=== PATIENT | male | born 1945 | race Caucasian/White ===

== ENCOUNTER 2024-03-22 06:28 | Inpatient (IN) | payer MEDICARE, OTHER, SELFPAY ==
--- NOTE | 2024-02-23 09:15 | CM ---
Patient is scheduled for an elective L THR on 03/22/24. Spoke with patient and his prior to surgery via telephone. Patient had a R THR at in 2016. Reintroduced role of Orthopedic Navigator. Patient reports that he lives with his in a one
story home. There are two (1-1) steps to enter. He currently functions independently and uses a cane. He also has a rolling walker, commode and grabber. He has never had VN services. PCP is Jennifer Rios.
Discussed orthopedic program and post surgical plans. Reviewed anticipated length of stay and that goal is for him to return home at discharge. Also reviewed outpatient PT. Patient is in agreement with tentative plan and will go directly to
outpatient PT at [facility]. He will have support from his when he goes home.
Patient will complete online education.
Plan: Orthopedic Navigator will remain available to assist with the care of patient and will reassess discharge needs after surgery.
[2024-03-05 13:08] VITALS: BMI 39.1
[2024-03-05 13:40] LABS: Hematocrit 47.8 % (39.0-52.0); Hemoglobin 16.7 g/dL (13.0-18.0); Mean Corp Hgb Conc. 34.9 g/dL (33.0-37.0); Mean Corpuscular Hgb 30.6 pg (27.0-31.0); Mean Corpuscular Volume 87.5 fL (80.0-94.0); Mean Platelet Volume 9.5 fL (7.4-10.4); Platelet Count 303 10^3/uL (130-400); Red Blood Cell Count 5.46 10^6/uL (4.70-6.10); Red Cell Dist. Width 13.9 % (11.5-14.5); White Blood Cell Count 8.9 10^3/uL (4.8-10.8)
[2024-03-05 13:54] LABS: ALT (SGPT) 18 U/L (0-50); AST (SGOT) 27 U/L (17-59); Albumin 4.4 g/dl (3.5-5.0); Alkaline Phosphatase 76 U/L (38-126); Blood Urea Nitrogen 23 mg/dl (9-20); Calcium 9.9 mg/dl (8.4-10.2); Carbon Dioxide 27 mmol/L (22-30); Chloride 101 mmol/L (98-107); Estimated Creatinine Clearance 79 ml/min; Glucose 85 mg/dl (70-99); Potassium 4.3 mmol/L (3.5-5.1); Sodium 137 mmol/L (135-145); Total Bilirubin 1.2 mg/dl (0.2-1.3); Total Protein 7.6 g/dl (6.3-8.2); eGFR > 60.00
[2024-03-05 15:16] VITALS: BMI 39.1
[2024-03-06 10:34] LABS: Glycohemoglobin (HgbA1c) 5.7 % (4.0-5.6)
--- NOTE | 2024-03-10 07:46 | SLEEP.APNEA ---
Sleep Apnea Order
-
Patient screened as High Risk for Sleep Apnea on Stop Bang Questionnaire. Patient referred to [facility] for Pre-Study.

Name: ENIO NICHOLSON
: 1945
Home Phone: Use RegAc[employer].PrimaryPhone instead
Cell Phone: [f_Reg Other Phone]

Address: [address] [place] [address]
City: [place]
State: [place]
Zip: [f[facility] Zip]
Family Physician: MARIS Ford
Height 5 ft 7 in
Actual Weight 113 kg
Body Mass Index (BMI) 39.1
Ordering Provider: Ronan Mack PA-C
[2024-03-22] VITALS (11 sets, daily range): BP systolic 103–149; BP diastolic 64–90; BMI 39.1
[2024-03-22] MEDS: MOBIC 15 MG PO (07:27)
[2024-03-22] MEDS: TYLENOL 650 MG PO ×5 (07:27→23:51)
[2024-03-22] MEDS: NORMOSOL-R 1000 IV ×2 (07:27→10:36)
--- NOTE | 2024-03-22 11:09 | W.PN.UPDATE ---
Update Note
Progress Note Update
L hip OA s/p L ANIYAH w/ Dr Agrawal 03/22/24
DVT prophylaxis - ASA, b/l venous foot pumps
HTN - + parameters - monitor BP
Asthma, mild and intermittent, and restrictive lung disease - monitor O2
- IS
- Resume inhalers
TIA at 42 y/o - resume ASA but at 325 mg daily dosing x4 weeks for blood clot prevention
BPH - monitor voids
- Add daily Flomax during admission
History of steroid-induced psychosis - avoid Decadron post-op
HLD
Vitamin D deficiency
Obesity, BMI 39.0
--- NOTE | 2024-03-22 11:57 | PTCARENOTE ---
Received patient from PACU around 1055 via bed in stable condition. Patient denies pain. + movement +sensation. Pins and needs to b/l feet. Left hip dressing C/D/I. Ice in place. Teds and foot pumps in place. Call eng in reach.
[2024-03-22] MEDS: FLOMAX 0.400000000000000022 MG PO (12:48)
[2024-03-22] MEDS: ANCEF 5 IV ×2 (15:53→23:50)
[2024-03-22] MEDS: ASPIRIN 325 MG PO (17:00)
[2024-03-22] MEDS: SYMBICORT 160/4.5 MCG INHALER 2 PUFF INH (19:48)
[2024-03-22] MEDS: BACTROBAN 2% OINTMENT 1 APPLIC NASAL (20:28)
[2024-03-22] MEDS: SENOKOT 17.1999999999999993 MG PO (20:28)
[2024-03-22] MEDS: COLACE 100 MG PO (20:28)
[2024-03-22] MEDS: TORADOL 10 MG IV (20:28)
[2024-03-22] MEDS: FLUSH (NSS) 2 FLUSH IV ×2 (20:30→23:51)
[2024-03-23 03:32] VITALS: BP 132/80
[2024-03-23] MEDS: TYLENOL PO (04:30)
[2024-03-23] MEDS: SYMBICORT 160/4.5 MCG INHALER 2 PUFF INH (07:33)
[2024-03-23] MEDS: SPIRIVA RESPIMAT 2.5 MCG 2 PUFF INH (07:33)
[2024-03-23 08:00] VITALS: BP 115/74
[2024-03-23 08:09] VITALS: BP 115/74
--- NOTE | 2024-03-23 08:32 | CM ---
Addendum entered by Radha Duffy 03/23/24 10:49:
Patient did well in therapy. He has no concerns about going home.
Addendum entered by Radha Duffy 03/23/24 08:33:
Discharge plans were reviewed with patient's and daughter on 03/22.
Original Note:
Reviewed chart and held rounds with PT, OT and nursing. Patient admitted as planned for elective L THR. Met with patient at bedside. Confirmed information previously obtained for assessment. Also discussed discharge plans. The plan is for patient to
return home at discharge. He will have support from his when he goes home. Patient will go directly to outpatient PT and will go to [facility]. He has an appointment scheduled for Friday, 03/24.
Patient has a rolling walker, cane, commode and grabber.
He will use [facility] pharmacy for discharge prescriptions.
[2024-03-23] MEDS: TYLENOL 650 MG PO (08:49)
[2024-03-23] MEDS: SENOKOT 17.1999999999999993 MG PO (08:50)
[2024-03-23] MEDS: ASPIRIN 325 MG PO (08:50)
[2024-03-23] MEDS: FLOMAX 0.400000000000000022 MG PO (08:50)
[2024-03-23] MEDS: COLACE 100 MG PO (08:51)
[2024-03-23] MEDS: MOBIC 15 MG PO (08:52)
[2024-03-23] MEDS: BACTROBAN 2% OINTMENT 1 APPLIC NASAL (08:52)
[2024-03-23 09:25] VITALS: BP 132/69; PULSE 94
[2024-03-23 10:20] VITALS: BP 92/63
--- NOTE | 2024-03-23 10:42 | W.PN.ORTHO ---
Today's Communication / Plan
-
d/c
Assessment
.
Distal Motor Intact: Yes
Dressing:
Clean, dry and intact.
Plan
.
Surgery / Date: Koby Agrawal 03/23/24
DVT Prophylaxis: Aspirin
Activity:
Out of bed.
PT/OT
Discharge Plan: Home w/ Outpatient PT
Subjective
.
.:
Patient resting comfortably.
Vital Signs and Labs
.
Vital Signs and Labs:
Lab Results
03/05/24 12:59
03/05/24 12:59
Temp Pulse Resp BP Pulse Ox
97.8 F 89 18 133/60 95
03/23/24 08:00 03/23/24 08:00 03/23/24 08:00 03/23/24 08:50 03/23/24 08:00
Non-invasive Hgb result: 17.6
Physical Exam
-
HEENT: No pallor, cyanosis, or jaundice. Throat clear.
NECK: Supple. No JVD.
RESPIRATORY: Lungs clear to auscultation.
CVS: S1, S2 normal. RRR.� No murmur, rub or gallop.
ABDOMEN: Soft, non-tender. No distension. BS+/normal.
EXTREMITIES: strength equal, no calf pain with palpation
CONFLICT RESOLUTION PROFESSIONAL: AOx3. No focal deficits. burglar alarm installer grossly intact
--- NOTE | 2024-03-23 10:50 | W.DS.TRANS ---
DC Summary - Radioisotope Technologist
-
Discharge Instructions:
Sleep Apnea Risk High
Discharge Diagnosis/Procedures Koby Agrawal 03/23/24
Diet As tolerated
Activity With Walker
Driving Restrictions No driving
Bathing Restrictions OK to Shower
Other Services PT
Instructions:
Stand-Alone Forms: Total Hip/Knee Replacement D/C
Changes to Home Medications: Yes
Discharge Medications:
DC Medications w/original date entered in Cl[facility]
Cranbarrier 1 tab PO BID 02/26/24
Phytomega 2 tab PO BID 02/26/24
Prostavan 1 tab PO DAILY 02/26/24
Replenex 1 tab PO HS 02/26/24
Replenex 2 tab PO DAILY 02/26/24
Vitality Multivit & Mineral 1 tab PO BID 02/26/24
albuterol 90 mcg/actuation aerosol inhaler 90 mcg inhalation PRN PRN SOB 02/26/24
budesonide 160 mcg-glycopyr 9 mcg-formot 4.8 mcg/actuation HFA inhaler (Breztri Aerosphere) 2 inh inhalation BID 02/26/24
hydrochlorothiazide 25 mg tablet 25 mg PO DAILY 02/26/24
losartan 100 mg tablet 100 mg PO DAILY 02/26/24
mupirocin 2 % topical ointment 1 applic topical BID infection prevention #1 tube 03/05/24
tamsulosin 0.4 mg capsule 0.4 mg PO HS #7 caps 03/05/24
Saccharomyces boulardii 250 mg capsule (Florastor) 250 mg PO BID #1 cap 03/23/24
acetaminophen 325 mg capsule (Tylenol) 650 mg (2 x 325 mg) PO QID #2 caps 03/23/24
acetaminophen 325 mg tablet 650 mg (2 x 325 mg) PO QID #0 tabs 03/23/24
aspirin 325 mg tablet 325 mg PO DAILY blood clot prevention #1 tab 03/23/24
cefadroxil 500 mg capsule 500 mg PO BID infection prevention #14 caps 03/23/24
docusate sodium 100 mg capsule (Colace) 100 mg PO BID stool softner #1 cap 03/23/24
famotidine 20 mg tablet 20 mg PO HS GI prophylaxis #30 tabs 03/23/24
gabapentin 300 mg capsule 300 mg PO HS sleep/pain #10 caps 03/23/24
magnesium hydroxide 400 mg/5 mL oral suspension (Milk of Magnesia) 30 ml PO HS PRN Constipation #1 mL 03/23/24
meloxicam 15 mg tablet 15 mg PO DAILY anti-inflammatory #14 tabs 03/23/24
oxycodone 5 mg tablet 5 mg PO Q6H PRN 1 tab moderate pain, 2 tabs severe pain #30 tabs 03/23/24
sennosides 8.6 mg tablet (Senokot) 17.2 mg (2 x 8.6 mg) PO BID laxative #2 tabs 03/23/24
Home Medication Changes
mupirocin 2 % topical ointment 1 applic topical BID infection prevention #1 tube 03/05/24�
tamsulosin 0.4 mg capsule 0.4 mg PO HS #7 caps 03/05/24�
Saccharomyces boulardii 250 mg capsule (Florastor) 250 mg PO BID #1 cap 03/23/24�
acetaminophen 325 mg capsule (Tylenol) 650 mg (2 x 325 mg) PO QID #2 caps 03/23/24�
aspirin 325 mg tablet 325 mg PO DAILY blood clot prevention #1 tab 03/23/24�
cefadroxil 500 mg capsule 500 mg PO BID infection prevention #14 caps 03/23/24�
famotidine 20 mg tablet 20 mg PO HS GI prophylaxis #30 tabs 03/23/24�
gabapentin 300 mg capsule 300 mg PO HS sleep/pain #10 caps 03/23/24�
meloxicam 15 mg tablet 15 mg PO DAILY anti-inflammatory #14 tabs 03/23/24�
oxycodone 5 mg tablet 5 mg PO Q6H PRN 1 tab moderate pain, 2 tabs severe pain #30 tabs 03/23/24�
Pending Results: No
[2024-03-23 11:26] VITALS: BP 117/62
== END 2024-03-23 11:58 | disposition home or self-care (01) | DRG 470 ==
LOC: 2 SOUTH 06:28
PROVIDERS: ADMITTING PHYSICIAN Specialist; FAMILY PHYSICIAN Nurse Practitioner Family
PROC: 0SRB04A Replacement of Left Hip Joint with Ceramic on Polyethylene Synthetic Substitute, Uncemented, Open Approach (ICD-10-PCS; 2024-03-22)
DX: M16.12 Unilateral primary osteoarthritis, left hip (principal); E66.9 Obesity, unspecified; I10 Essential (primary) hypertension; E78.5 Hyperlipidemia, unspecified; N40.0 Benign prostatic hyperplasia without lower urinary tract symptoms; E55.9 Vitamin D deficiency, unspecified; F09 Unspecified mental disorder due to known physiological condition; T38.0X5A Adverse effect of glucocorticoids and synthetic analogues, initial encounter; J98.4 Other disorders of lung; Z68.39 Body mass index [BMI] 39.0-39.9, adult; Z79.82 Long term (current) use of aspirin; Z86.73 Personal history of transient ischemic attack (TIA), and cerebral infarction without residual deficits
CPT/HCPCS: 36415; 73502; 80053; 83036; 85027; 87070; 93005; 94640; 97110; 97116; 97162; 97167; 97530; 97535; C1713; C1776

== ENCOUNTER 2025-03-13 12:22 | Emergency (ER) | payer MEDICARE, OTHER, SELFPAY ==
[2025-03-13 12:32] VITALS: BP 195/89
[2025-03-13 15:22] VITALS: BP 189/84
--- NOTE | 2025-03-13 15:40 | ED.GENMED ---
History of Present Illness
General
Chief Complaint: Swelling
Source: patient
Exam Limitations: none
Time Seen by Provider: 03/13/25 13:15
History of Present Illness
History of Present Illness:
80-year-old male presents complaining of atraumatic pain and swelling to the left foot. He noticed something last night and got worse this morning. He denies chest pain or shortness of breath. He was initially seen at an urgent care was sent here
for evaluation of DVT. He is not anticoagulated. No other complaints at this time
Past History
Past History
ED Past Medical History: HTN
Social History
Tobacco: Non-smoker
Alcohol: Occasional
Drug: None
Personal:
Living: with family
Phy Exam
Physical Exam
Physical Exam:
General: Well-appearing male no acute respiratory distress
HEENT: Normocephalic atraumatic
Musculoskeletal exam: Left foot swollen ecchymotic and tender over the dorsum of the foot. No deformity the ankle is nontender.
Skin is intact without erythema
Vascular: Left foot has palpable DP pulse with brisk refill to the toes
Neurologic: Good sensation left foot
Scores
Heart Failure Risk
Heart Failure Risk Score: Not Applicable
Course
Orders/Labs/Results
Orders:
Orders
03/13/25 12:35
US Periph Venous LOWER Ext LT Urgent
Comment:
Reason For Exam: swelling/pain
03/13/25 14:23
CR Foot - Left Min 3 Views Urgent
Comment:
Reason For Exam: swelling
Vital Signs
Initial and Last Documented VS:
Initial Vital Signs
Temp Pulse Resp BP Pulse Ox
98.7 F 65 17 195/89 96
03/13/25 12:32 03/13/25 12:32 03/13/25 12:32 03/13/25 12:32 03/13/25 12:32
Last Documented Vital Signs
Temp Pulse Resp BP Pulse Ox
98.7 F 61 18 189/84 95
03/13/25 12:32 03/13/25 15:22 03/13/25 15:22 03/13/25 15:22 03/13/25 15:22
MDM/Problems Addressed
Differential Diagnosis Includes:
Left foot pain. Consider contusion versus fracture versus DVT. No overwhelming findings of infection on the foot. Initially seen at an urgent care and sent here.
Venous ultrasound ordered through triage was negative for DVT. X-ray was personally visualized of the left foot which is negative for acute fracture. Exam most consistent with contusion. Recommended ice and elevation. Stable for discharge
*Critical Care Note
Total Time (30-74mins, 75-104mins- exclusive of procedures): Not Applicable
ED Attending Note
-
Portions of this chart may have been created with voice recognition software.� Occasional wrong word or��sound alike� substitutions may have occurred due to the inherent limitations of voice recognition software.
Discharge Plan
Departure
Patient Disposition: Home (Routine Discharge)
Date of Disposition: 03/13/25
Time of Disposition: 15:42
Patient with high blood pressure during this ER visit?: No
Discharge Problem:
Contusion
Instructions: Contusion
Prescriptions:
No Action
hydrochlorothiazide 25 mg Tablet
25 mg PO DAILY
albuterol 90 mcg/actuation Aerosol
90 mcg INHALATION PRN PRN (Reason: SOB)
losartan 100 mg Tablet
100 mg PO DAILY
Breztri Aerosphere 160-9-4.8 mcg/actuation Hfa Aerosol Inhaler
2 inh INHALATION BID
Cranbarrier
1 tab PO BID
Rx Instructions:
MelaleSoniqplay
Phytomega
2 tab PO BID
Rx Instructions:
MelaleSoniqplay
Prostavan
1 tab PO DAILY
Patient Comments:
Visitar
Replenex
2 tab PO DAILY
Patient Comments:
Visitar
Replenex
1 tab PO HS
Patient Comments:
CorrineSoniqplay
Vitality Multivit & Mineral
1 tab PO BID
Rx Instructions:
Visitar
mupirocin 2 % ointment
1 applic topical BID Qty: 1 0RF
tamsulosin 0.4 mg capsule
0.4 mg PO HS Qty: 7 0RF
Rx Instructions:
begin 3 nights b/f surgery
sennosides [Senokot] 8.6 mg tablet
17.2 mg PO BID Qty: 2 0RF
aspirin 325 mg tablet
325 mg PO DAILY Qty: 1 0RF
Rx Instructions:
Take with food
meloxicam 15 mg tablet
15 mg PO DAILY Qty: 14 0RF
Rx Instructions:
take with food
post-op
cefadroxil 500 mg capsule
500 mg PO BID Qty: 14 0RF
Rx Instructions:
*Take w/ food
*Take w/ probiotic
*POST-OP USE
famotidine 20 mg tablet
20 mg PO HS Qty: 30 0RF
Rx Instructions:
post-op
magnesium hydroxide [Milk of Magnesia] 400 mg/5 mL suspension
30 ml PO HS PRN (Reason: Constipation) Qty: 1 0RF
docusate sodium [Colace] 100 mg capsule
100 mg PO BID Qty: 1 0RF
gabapentin 300 mg capsule
300 mg PO HS Qty: 10 0RF
oxycodone 5 mg tablet
5 mg PO Q6H PRN (Reason: 1 tab moderate pain, 2 tabs severe pain) Qty: 30 0RF
Rx Instructions:
Ongoing therapy
Saccharomyces boulardii [Florastor] 250 mg capsule
250 mg PO BID Qty: 1 0RF
acetaminophen [Tylenol] 325 mg capsule
650 mg PO QID Qty: 2 0RF
Referrals:
Jennifer Rios CRNP [Family Provider] -
Activity Restrictions/Additional Instructions:
Elevate for swelling. Use ice for swelling. Take Tylenol for pain. Return if worse otherwise follow-up with your doctor
Interventions
Interventions:
*Risk Screen - Suicide Last Done: 03/13/25 12:34
*General Assessment Last Done: 03/13/25 12:34
*Neglect/Abuse Screening Last Done: 03/13/25 12:34
*ED COVID-19 Vaccine History Last Done: 03/13/25 12:34
ED- Cardiac Assessment Last Done: 03/13/25 15:22
ED- Pulmonary Assessment Last Done: 03/13/25 15:22
ED-Skin Assessment Last Done: 03/13/25 15:25
Discharge Date and Time
Print Language: UKRAINIAN
== END 2025-03-13 16:00 | disposition home or self-care (01) ==
LOC: EMR 12:22
PROVIDERS: EMERGENCY PHYSICIAN Student in an Organized Health Care Education/Training Program; FAMILY PHYSICIAN Nurse Practitioner Family
DX: S90.32XA Contusion of left foot, initial encounter (principal); I10 Essential (primary) hypertension
CPT/HCPCS: 99284; 73630; 93971

== ENCOUNTER 2025-05-18 06:32 | Inpatient (IN) | payer MEDICARE, OTHER, SELFPAY ==
[2025-05-18] VITALS (18 sets, daily range): BP systolic 102–167; BP diastolic 66–91; BMI 34.7
[2025-05-18] MEDS: PROTONIX IV 40 MG IV ×2 (02:53→09:06)
[2025-05-18] MEDS: NSS 1000 IV ×4 (02:53→21:54)
[2025-05-18 03:12] LABS: Hematocrit 41.9 % (39.0-52.0); Hemoglobin 14.1 g/dL (13.0-18.0); Mean Corp Hgb Conc. 33.7 g/dL (33.0-37.0); Mean Corpuscular Volume 92.5 fL (80.0-94.0); Nucleated Red Blood Cells % 0 % (-); Platelet Count 250 10^3/uL (130-400); Red Cell Dist. Width 14.5 % (11.5-14.5)
[2025-05-18 03:26] LABS: ALT (SGPT) 16 U/L (0-50); AST (SGOT) 19 U/L (17-59); Albumin 3.7 g/dl (3.5-5.0); Alkaline Phosphatase 50 U/L (38-126); Blood Urea Nitrogen 31 mg/dl (9-20); Calcium 8.9 mg/dl (8.4-10.2); Carbon Dioxide 24 mmol/L (22-30); Chloride 111 mmol/L (98-107); Estimated Creatinine Clearance 66 ml/min; Glucose 137 mg/dl (70-99); Lipase 71 U/L (23-300); Potassium 4.6 mmol/L (3.5-5.1); Sodium 140 mmol/L (135-145); Total Protein 6.3 g/dl (6.3-8.2); eGFR > 60.00
--- NOTE | 2025-05-18 05:26 | ED.GENMED ---
History of Present Illness
General
Chief Complaint: Rectal Bleeding
Source: patient
Exam Limitations: none
Time Seen by Provider: 05/18/25 01:41
Nursing documentation reviewed up to this point in time: agreed with
History of Present Illness
History of Present Illness:
Note:
CHIEF COMPLAINT(S)
Passing blood during bowel movement
HISTORY OF PRESENT ILLNESS
The patient is an 80-year-old male with a pmh of htn, hlp, asthma who presented with significant rectal bleeding. He reported that the bleeding occurred while he was using the toilet, describing it as 'quite a bit' and noted that this had never
happened to him before. He compared the sensation in his stomach during the episode to 'gyrations' but denied experiencing pain. The event occurred at approximately 11:30 PM following a class he attended at a [facility]. He realized the
severity of the bleeding when he noticed blood on the passenger seat of the car. He reported feeling lightheaded and weak, with the possibility of passing out when standing.
There was no history of gastrointestinal problems, and the patient had never undergone a colonoscopy. He denied fever or chills but mentioned a long-standing habit of consuming hot sauce with every meal. He did not experience abdominal pain upon
palpation during the examination. No ongoing pain was reported, and the bleeding was identified as likely originating from hemorrhoids or another colorectal source.
He reported taking a baby aspirin but denied using other blood thinners.
He had multiple episodes of bloody stools over a 45 min period.
He has no fevers or chills, nausea or vomiting, chest pain, shortness of breath, recent abx use, recent travel.
PHYSICAL EXAM
- pallor noted
General: Patient is well appearing and in no acute distress; non-toxic
Skin: Warm and dry, no rashes or lesions
Head: Normocephalic, atraumatic
Eyes: Sclera non-icteric. EOMs intact.
Cardiac: Regular rate and rhythm, no murmurs
Pulm: Normal respiratory effort, no wheezes, rales, or rhonchi
Abdomen: No abdominal tenderness to palpation
Genitourinary: Dried blood noted between buttock. Large amount of bloody stool heme positive noted within rectal vault.
Neuro: CN II-XII intact, no focal neurologic deficits.
Psychiatric: Appropriate mood and affect.
PROBLEM LIST
Acute:
- Rectal bleeding
- Lightheadedness and weakness
- Low blood pressure
PLAN
1. Initiate intravenous fluid therapy to address low blood pressure and dehydration.
2. Order complete blood count and chemistry panel to evaluate hemoglobin levels and potential anemia.
3. Consider CTA
4. Monitor vital signs and adjust treatment plan based on laboratory and imaging results.
DIFFERENTIAL DIAGNOSIS
The Differential Diagnosis includes, in no particular order and is not limited to:
1. Gastrointestinal bleed due to diverticulosis
2. Colorectal cancer
3. Hemorrhoids
4. Gastrointestinal bleed due to peptic ulcer
5. Gastrointestinal bleed due to angiodysplasia
6. Coagulopathy-related bleeding
7. Infectious colitis
8. Inflammatory bowel disease (Crohns disease, ulcerative colitis)
9. Colonic polyps
10. Ischemic colitis
CHART REVIEW
-reviewed discharge summary from 10/30/16
MDM/DISPOSITION
The patient is an 80-year-old male with a pmh of htn, hlp, asthma who presented with significant rectal bleeding. He reported that the bleeding occurred while he was using the toilet, describing it as 'quite a bit' and noted that this had never
happened to him before. He has no associated abdominal pain, fevers, chills. On exam he has a large amount of bloody stool within the rectal vault. He will require admission for observation and endoscopy/colonoscopy and GI consultation. ED
attending aware
Past History
Past History
ED Past Medical History: HTN
Social History
Tobacco: Non-smoker
Alcohol: Occasional
Drug: None
Personal:
Living: with family
Review of Systems
Review of Systems
All Other Systems: ROS reviewed and negative except as documented in HPI and ROS
Phy Exam
Physical Exam
Physical Exam:
General: Patient is well appearing and in no acute distress; non-toxic
Skin: Warm and dry, no rashes or lesions
Head: Normocephalic, atraumatic
Eyes: Sclera non-icteric. EOMs intact.
Cardiac: Regular rate and rhythm, no murmurs
Pulm: Normal respiratory effort, no wheezes, rales, or rhonchi
Abdomen: No abdominal tenderness to palpation
Genitourinary: Dried blood noted between buttock. Large amount of bloody stool heme positive noted within rectal vault.
Neuro: CN II-XII intact, no focal neurologic deficits.
Psychiatric: Appropriate mood and affect.
Course
Orders/Labs/Results
Orders:
Orders
05/18/25 02:26
Pantoprazole [Protonix IV] 40 mg IV NOW STA
05/18/25 02:28
IV Insert/Care/Rem.- Treatment PRN
05/18/25 02:29
Electrocardiogram (*1) Urgent
Reason for Study: Other
Other Reason for Exam: lightheadedness
0.9% Sodium Chloride 1000 ml [Nss] 1,000 ml IV BOLUS
05/18/25 02:49
Type And Crossmatch [Type+Screen] Urgent
Complete Blood Count/With Diff Urgent
Comprehensive Metabolic Panel Urgent
Lipase Urgent
05/18/25 03:20
ABO2 Routine
BBK Wristband Number:
Associate notified that ABO2 has been ordered: [id number]
Date: 05/18/25
Time: 03:15
Reproductive Surgeon ID: [id number]
05/18/25 05:36
Dextrose 50%-Water [Dextrose 50% Syringe] 25 grams .ROUTE .STK-MED ONE
05/18/25 Breakfast
NPO
Allow oral meds: Yes
Allow clear liquids: Sips of Clears
05/18/25 06:16
Admit/Transfer Patient As Directed
Co-Sign Provider:
Level of Care: Inpatient admission
Assign to:: IMU- Intermediate Care
Physician / Group: Ac
Diagnosis: Lower GI Bleed
Reason for Hospitalization: Lower GI Bleed
Expected length of stay greater than two midnights?: Yes
ELOS- Estimated Length of Stay in days: 3
I certify the patient meets the requirements for IP care: Yes
PRN Pain Medication Management As Directed
May give lesser potent ordered pain med per pt: Yes
preference::
Protocol:: Medication orders for pain may be administered in a
manner that supports deferring to patient preference
when the pt is:
- Requesting an ordered lesser potent pain medication.
Least to most potent pain medications are defined
as: acetaminophen < NSAID < tramadol < opioids
(morphine, oxycodone, hydromorphone).
- Requesting a lesser dose of the same medication IF
ORDERED.
- Requesting a less intrusive route of administration
if both routes are prescribed by the provider (PO <
IV).
05/18/25 06:17
Code Status As Directed
Resuscitation Status: Full Code
05/18/25 06:21
0.9% Sodium Chloride 1000 ml [Nss] 1,000 ml IV BOLUS
05/18/25 08:16
0.9% Sodium Chloride 1000 ml [Nss] 1,000 ml IV 125 mls/hr
Acetaminophen [Tylenol] 650 mg PO Q4HPRN PRN
Albuterol Nebs [Ventolin Nebules] 2.5 mg INH R Q4HPRN PRN
05/18/25 08:16
Consult Notification Routine
Specialty to Notify: Gastroenterology
Date consulting provider notified: 05/18/25
Time consulting provider notified: 09:20
Notified:: Provider
GASTROINTESTINAL CONSULT Routine
Consulting Provider: Linh Ly
Was physician already notified: No
Reason for consult: Lower GI Bleed
Activity As Directed
Activity Level: Bedrest
EKG with chest pain [ECG as needed] As Directed
ECG as needed for:: Chest Pain
I/O [Intake/ Output] As Directed
Frequency: Per unit guidelines
Pneumatic Compression Sleeves As Directed
Type: Knee high
Vital Signs As Directed
Frequency: Per unit guidelines
Oxygen Therapy [O2 Therapy] [RESP] Routine
Titrate/Wean O2 to maintain O2 sat greater than (%): 94
DX Deep Vein Thrombosis Video Routine
05/18/25 09:00
Pantoprazole [Protonix IV] 40 mg IV DAILY
05/18/25 10:00
Budesonide/Formoterol 160/4.5 [Symbicort 160/4.5 Mcg Inhaler] 2 puff INH R BID
05/18/25 11:37
HH [H&H] Q6H
05/18/25 14:16
HH [H&H] Q6H
05/18/25 20:16
HH [H&H] Q6H
05/19/25 02:16
HH [H&H] Q6H
05/19/25 06:00
Basic Metabolic Panel IN AM
Abnormal Lab Results
05/18/25
02:49
WBC 15.4 H 10^3/uL
(4.8-10.8)
RBC 4.53 L 10^6/uL
(4.70-6.10)
MCH 31.1 H pg
(27.0-31.0)
Abs Immat Gran (auto) 0.2 H 10^3/uL
(0-0.05)
Absolute Neuts (auto) 12.8 H 10^3/uL
(1.4-6.5)
Absolute Monos (auto) 1.0 H 10^3/uL
(0.1-0.6)
Immature Gran % 1.0 H %
(0-0.5)
Neutrophils % 83.2 H %
(42.2-75.2)
Lymphocytes % 8.8 L %
(20.5-51.1)
Chloride 111 H mmol/L
(98-107)
BUN 31 H mg/dl
(9-20)
Glucose 137 H mg/dl
(70-99)
05/18/25 02:49
05/18/25 02:49
Vital Signs
Initial and Last Documented VS:
Initial Vital Signs
Temp Pulse Resp BP Pulse Ox
98.8 F 70 20 128/77 95
05/18/25 01:02 05/18/25 01:02 05/18/25 01:02 05/18/25 01:02 05/18/25 01:02
Last Documented Vital Signs
Temp Pulse Resp BP Pulse Ox
98 F 72 16 130/78 95
05/18/25 07:10 05/18/25 11:07 05/18/25 11:07 05/18/25 07:02 05/18/25 11:07
*Pulse Oximetry
SaO2: 92
Oxygen Mode of Delivery: Room air
Patient hypoxic: no
*Critical Care Note
Total Time (30-74mins, 75-104mins- exclusive of procedures): Not Applicable
ED Attending Note
-
Portions of this chart may have been created with voice recognition software.� Occasional wrong word or��sound alike� substitutions may have occurred due to the inherent limitations of voice recognition software.
Discharge Plan
Departure
Patient Disposition: Admit
Date of Disposition: 05/18/25
Time of Disposition: 05:33
Admit to: Med/Surg
Presentation/result/management discussed w/ accepting MD/DO: Hospitalist
Condition: Fair
Discharge Problem:
Lower gastrointestinal bleeding
Interventions
Interventions:
*Risk Screen - Suicide Last Done: 05/18/25 08:17
*General Assessment Last Done: 05/18/25 01:02
*Neglect/Abuse Screening Last Done: 05/18/25 01:02
*ED- Fall Risk Assessment Last Done: 05/18/25 01:02
*ED COVID-19 Vaccine History Last Done: 05/18/25 08:17
*Nursing Disposition Last Done: 05/18/25 08:24
FC-Kvyxua-Ikrkveehxa Assessment Last Done: 05/18/25 01:26
ED- Cardiac Assessment Last Done: 05/18/25 01:26
ED- Pulmonary Assessment Last Done: 05/18/25 01:26
Discharge Date and Time
Discharge Date/Time: 05/18/25 08:24
--- NOTE | 2025-05-18 06:19 | HPS.HSE ---
Family Physician
-
Family Physician: NOT KNOW UNKNOWN - PT DOES
Chief Complaint
-
Rectal Bleeding
History of Present Illness
Patient is an 80y M with PMH significant for hypertension and asthma who presents to ED complaining of rectal bleeding. Patient states that he was feeling well until this evening around 11:30 PM when his noted blood on his car seat while he
was exiting the vehicle at home. He went inside to the bathroom and proceed to have a large amount of 'bloody diarrhea'. He had two large episodes of this. has a picture of the results which appear to be most consistent with bright red blood
and dark clots - no significant amount of stool noted. Patient was feeling lightheaded and weak at home.
They presented to the ED for further evaluation.
Patient has not had further bleeding since arrival to the ED. He is feeling somewhat improved after IVFs in the ED.
He denies any prior history of GI bleeding. He has never had a colonoscopy before.
He takes ASA 81mg twice daily for prior h/o TIA in his 40s. No blood thinners.
Medical History
Past Medical History
Past Medical History: Reports Other
Additional Past Medical History:
Hypertension
TIA (42yo)
Obesity
Osteoarthritis
BPH
Asthma
Past Surgical History: Reports Other
Additional Past Surgical History:
Left TKA
Bilateral ANIYAH
Bilateral Inguinal Hernia Repairs
Social History
Tobacco: Non-smoker
Alcohol: Occasional
Drug: None
Personal:
Living: With Family
Family History
Family History: Not pertinent
Allergies / Home Medications
Allergies reflects when Allergies were last updated in [facility].
Home Medications with original date entered in [facility]
Allergy/Medication List:
Allergies
Allergy/AdvReac Type Severity Reaction Status Date / Time
iodine (Iodine) Allergy Hives Verified 05/18/25 01:02
sulfamethoxazole (From Allergy Itching Verified 05/18/25 01:02
Bactrim)
trimethoprim (From Bactrim) Allergy Itching Verified 05/18/25 01:02
Home Medications
budesonide 160 mcg-glycopyr 9 mcg-formot 4.8 mcg/actuation HFA inhaler (Breztri Aerosphere) 2 inh inhalation BID 02/26/24
hydrochlorothiazide 25 mg tablet 25 mg PO DAILY 02/26/24
losartan 100 mg tablet 100 mg PO DAILY 02/26/24
aspirin 81 mg chewable tablet 81 mg PO BID 05/18/25
Review of Systems
-
History Source: Patient
A 12 point ROS was completed and negative except as noted: Yes
Constitutional: Reports Fatigue; Denies Fever or Chills
Respiratory: Denies Cough or Trouble Breathing
Cardiac: Denies Chest Pain or Palpitations
Abdomen/GI: Reports Diarrhea and Bloody Stools; Denies Abdominal Pain, Nausea, Vomiting or Anorexia
: Denies Dysuria, Frequency or Flank Pain
Musculoskeletal: Denies Joint Pain or Edema
Neurological: Reports Dizzy and Weakness; Denies Headache
Physical Exam
Vital Signs
Vital Signs
Temp Pulse Resp BP Pulse Ox
98.8 F 70 14 102/71 92
05/18/25 01:02 05/18/25 01:23 05/18/25 01:23 05/18/25 01:23 05/18/25 05:26
Physical Exam
General: Other (80y M in no acute distress. Mild pallor.)
HEENT: Moist mucous membranes and PERRLA
Respiratory: Clear; No Wheezes, Rales or Rhonchi
Cardiac: S1/S2 and Regular Rhythm; No Murmur
GI: Non Tender, Non Distended and Other (Obese, not tender. Pos BS.)
Musculoskeletal: No Clubbing, No Cyanosis and No Edema
Neuro: AO x 3
Laboratory Results
-
05/18/25 02:49
05/18/25 02:49
Laboratory Results
Total Bilirubin 1.2 mg/dl (0.2-1.3) 05/18/25 02:49
AST 19 U/L (17-59) 05/18/25 02:49
ALT 16 U/L (0-50) 05/18/25 02:49
Alkaline Phosphatase 50 U/L (38-126) 05/18/25 02:49
Lipase 71 U/L (23-300) 05/18/25 02:49
Impression/Plan
-
A/P: Patient is an 80y M with PMH significant for hypertension who presents to ED complaining of bright red blood per rectum this evening.
Lower GI Bleeding
- Admit to IMU for further evaluation and treatment.
- History and photo evidence suggest significant volume of blood loss at home.
- IVF support with additional bolus now then maintenance fluids.
- Follow H&H and transfuse if significant decline in Hgb or worsening symptoms.
- GI evaluation for additional recommendations / possible endoscopic exam.
- Hold ASA for now.
Benign Hypertension
- Relatively hypotensive due to blood loss / volume loss.
- Hold losartan, HCTZ, etc for now.
Asthma without Acute Exacerbation
- Stable. Continue inhaled medications.
- Albuterol PRN.
DVT Prophylaxis: SCDs
Code Status: Full
--- NOTE | 2025-05-18 07:55 | PTCARENOTE ---
Patient received from shift engineer RN. Pt in bed screaming for help and the he's in pain. RN informed vehicle modification technician and received a 1x dose morphine 2mg and a morphine drip pending from pharmacy. All family members in room.
[2025-05-18] MEDS: NSS (PRESERVATIVE FREE) 10 ML IV (09:06)
--- NOTE | 2025-05-18 10:12 | PTCARENOTE ---
Patient received from ED RN. Larisa, report no complaints at this time. VS and assessment WNL. Orientation to room as well as unit explained. Lab work and plan of care reviewed with family and patient.
--- NOTE | 2025-05-18 10:42 | CON.GI ---
Addendum entered and electronically signed by MARIS Miranad 05/18/25 13:20:
updated family and patient. Offered also EGD. Pt declines anesthesia so plan for colonoscopy only unsedated as reviewed with Dr. Ly.
Addendum entered and electronically signed by Linh Ly MD 05/18/25 12:54:
I saw and examined the patient.
The ADOBE DEVELOPER or PA's note was reviewed and I agree with the note.
Comment:
Pt is a 80 y/o with a hx of rectal bleeding profuse red while at home. No abdominal pain. no hx of egd/colonoscopy. BUN/Creat >25
abd: soft, nontender
impression
GIBleed
plan:
follow hgb
clears
prep for egd/colonoscopy tomorrow
Original Note:
Consultation
-
Date/Time Consultation Requested: 05/18/25 0816
Date/Time Consultation Performed: 05/18/25 1045
Requesting Provider: Tc Shen DO
Performing Provider: MARIS Damon, Linh Ly MD
Reason for Consultation: rectal bleeding
Medical History
Chief Complaint / HPI
Chief Complaint: rectal bleeding
History of Present Illness:
Pt is an 80yo with hx asthma, HTN, TIA age 42, vitamin D deficiency, hypertriglyceridemia, cellulitis obesity, abnormal glucose with hbg A1C 5.7 in 2023, osteoarthritis with prior hip and knee replacement, hernia repair, BPH with onset of rectal
bleeding with noted blood on car seat when pt got out of car then noted large blood stool after going to bathroom with noted red blood with clots. He had further stool after admission with some blood but also some brown stool. No hx colonoscopy
or bleeding in past. On daily ASA with hx TIA no other anticoagulation. On admission hbg 14.1 with prior hbg 16.7 in 2023.
In review with patient he admits to occasional constipation with use of stool softener but denies odynophagia, dysphagia, GERD, nausea, vomiting, abdominal pain, diarrhea or black stools.
Past Medical History
Past Medical History: Asthma, CVA (at age 42), HTN and Other (vitamin D deficiency, hypertriglyceridemia, cellulitis, abnormal glucose with hbg A1C 5.7 in 2023, osteoarthritis, BPH)
Past Surgical History: Orthopedic (hip replacement, knee replacement), Tonsilectomy and Other (hernia repair, 2002 and 2006)
Social History
Tobacco: Former Smoker (only in teen years )
Alcohol: Occasional (1-2 beers per week)
Drug: None
Personal:
Living: With Family
Employment: Retired
Family History
Family History: Other (no family hx colon CA or GI problems)
Allergies / Home Medications
Allergy/AdvReac Type Severity Reaction Status Date / Time
iodine (Iodine) Allergy Hives Verified 05/18/25 01:02
sulfamethoxazole (From Allergy Itching Verified 05/18/25 01:02
Bactrim)
trimethoprim (From Bactrim) Allergy Itching Verified 05/18/25 01:02
�Medication �Instructions �Recorded
budesonide 160 mcg-glycopyr 9 1 inh inhalation R BID 02/26/24
mcg-formot 4.8 mcg/actuation HFA Lung/Breathing Issues
inhaler (Breztri Aerosphere)
hydrochlorothiazide 25 mg tablet 25 mg PO .SEE BELOW Blood 02/26/24
Pressure
losartan 100 mg tablet 100 mg PO .SEE BELOW Blood 02/26/24
Pressure
Unknown Vitamins/Supplements 1 dose PO .SEE BELOW 05/18/25
Supplement
aspirin 81 mg chewable tablet 81 mg PO BID Blood Clot 05/18/25
Prevention/Tx
docusate sodium 100 mg capsule 200 mg PO DAILY PRN constipation 05/18/25
(Colace)
naproxen sodium 220 mg tablet 440 mg PO DAILYPRN PRN mild pain 05/18/25
(Aleve)
Review of Systems
-
History Source: Patient
Constitutional: Reports No Symptoms
EENT: Reports No Symptoms
Respiratory: Reports No Symptoms
Cardiac: Reports No Symptoms
Abdomen/GI: Reports Constipated and Bloody Stools
: Reports No Symptoms
Musculoskeletal: Reports No Symptoms
Skin: Reports No Symptoms
Neurological: Reports No Symptoms
Endocrine: Reports No Symptoms
Hematologic/Lymphatic: Reports Bleeding
Vital Signs
Temp Pulse Resp BP Pulse Ox
98 F 70 17 130/78 93
05/18/25 07:10 05/18/25 07:02 05/18/25 07:02 05/18/25 07:02 05/18/25 07:02
Physical Exam
Exam
General: Well Developed, Well Nourished and No Apparent Distress
HEENT: Normocephalic and Anicteric
Respiratory: Clear
Cardiac: Regular Rhythm
GI: Soft, Non Tender and Non Distended
Rectal: Other (pt declined as completed in ER)
Musculoskeletal: No Clubbing and No Cyanosis
Skin: Warm and Dry
Neuro: Awake, Alert and AO x 3
Psych: Calm
Results
WBC 15.4 10^3/uL (4.8-10.8) H 05/18/25 02:49
Hgb 14.1 g/dL (13.0-18.0) 05/18/25 02:49
Hct 41.9 % (39.0-52.0) 05/18/25 02:49
MCV 92.5 fL (80.0-94.0) 05/18/25 02:49
Plt Count 250 10^3/uL (130-400) 05/18/25 02:49
Absolute Neuts (auto) 12.8 10^3/uL (1.4-6.5) H 05/18/25 02:49
Sodium 140 mmol/L (135-145) 05/18/25 02:49
Potassium 4.6 mmol/L (3.5-5.1) 05/18/25 02:49
Chloride 111 mmol/L (98-107) H 05/18/25 02:49
Carbon Dioxide 24 mmol/L (22-30) 05/18/25 02:49
BUN 31 mg/dl (9-20) H 05/18/25 02:49
Creatinine 1.1 mg/dL (0.7-1.3) 05/18/25 02:49
Calcium 8.9 mg/dl (8.4-10.2) 05/18/25 02:49
Total Bilirubin 1.2 mg/dl (0.2-1.3) 05/18/25 02:49
AST 19 U/L (17-59) 05/18/25 02:49
ALT 16 U/L (0-50) 05/18/25 02:49
Alkaline Phosphatase 50 U/L (38-126) 05/18/25 02:49
Lipase 71 U/L (23-300) 05/18/25 02:49
Diagnostic Image Results:
on imaging completed on admission
Prior GI Procedures:
EGD: none
Colonoscopy:none
Assessment / Plan
-
Pt is an 80yo with hx asthma, HTN, TIA age 42, vitamin D deficiency, hypertriglyceridemia, cellulitis, obesity, abnormal glucose with hbg A1C 5.7 in 2023, osteoarthritis with prior hip and knee replacement, hernia repair, BPH with onset of rectal
bleeding with noted blood on car seat when pt got out of car then noted large blood stool after going to bathroom with noted red blood with clots. He had further stool after admission with some blood but also some brown stool. No hx colonoscopy
or bleeding in past. On daily ASA with hx TIA no other anticoagulation. On admission hbg 14.1 with prior hbg 16.7 in 2023.
-rectal bleeding
-constipation
other med problems:
asthma
-HTN
-TIA age 42
-vitamin D deficiency
-hypertriglyceridemia
-cellulitis
-abnormal glucose with hbg A1C 5.7 in 2023
- osteoarthritis with prior hip and knee replacement
-hernia repair
-BPH
PLAN:
etiology of rectal bleeding related to local source with blood initially noted in seat in car, vs diverticular vs mass/polyp vs other
plan for colonoscopy in AM- pt agreeable to proceed
trend hbg
if increased volume of blood can consider CTA
clear diet
will follow
-
-
Thank you for consultation and allowing me to participate in the patient's care. Please call the welder production line gas GI physician during the after hours with any questions or concerns.
[2025-05-18] MEDS: SPIRIVA RESPIMAT 2.5 MCG 2 PUFF INH (11:02)
[2025-05-18] MEDS: SYMBICORT 160/4.5 MCG INHALER 2 PUFF INH ×2 (11:02→20:47)
[2025-05-18 11:49] LABS: Hematocrit 38.1 % (39.0-52.0); Hemoglobin 13.0 g/dL (13.0-18.0)
[2025-05-18] MEDS: DULCOLAX 10 MG PO (12:42)
--- NOTE | 2025-05-18 15:47 | W.PN.HOSP.TC ---
Today's Communication/Plan
-
Colonoscopy and possible EGD tomorrow
Avoid blood thinners
Transfuse PRBCs if Hgb<7
Continue to monitor in IMU
Assessment / Plan
Assessment / Plan
Physical Exam
General: Not in acute distress
HEENT: Moist mucous membranes
Respiratory: Clear to Auscultation Bilaterally
Cardiac: S1/S2 and Regular Rhythm
GI: Non Tender, Non Distended and Other (Obese, not tender. Positive bowel sounds.)
Musculoskeletal: No Cyanosis and No Edema
Neuro: AAO x 3
Assessment/Plan
80 y/o male with past medical history significant for hypertension and asthma who presented to [facility] ED complaining of rectal bleeding. Patient stated that he was feeling well until 05/17/25 evening around 11:30 PM when his noted blood on his
car seat while he was exiting the vehicle at home. He went inside to the bathroom and proceed to have a large amount of 'bloody diarrhea'. He had two large episodes of this. had a picture of the results which appear to be most consistent
with bright red blood and dark clots - no significant amount of stool noted. Patient was feeling lightheaded and weak at home. He denied any prior history of GI bleeding. He had never had a colonoscopy before. He was taking Aspirin 81mg twice daily
for prior history of TIA in his age of 40s.
Lower GI Bleeding
- Monitor in IMU
- History and photo evidence suggest significant volume of blood loss at home.
- IVF support -- IV fluid boluses given, maintenance IV fluids
- Follow H&H and transfuse if significant decline in Hgb or worsening symptoms.
- GI evaluation for additional recommendations -- EGD and colonoscopy tomorrow
- Clear Liquids Diet
- Hold ASA for now.
Benign Hypertension
- Relatively hypotensive due to blood loss / volume loss.
- Hold losartan, HCTZ, etc for now.
Asthma without Acute Exacerbation
- Stable. Continue inhaled medications.
- Albuterol PRN.
History of TIA at age ~42
-Hold Aspirin at this time
Vitamin D deficiency
Hypertriglyceridemia
History of cellulitis
Obesity
Abnormal glucose with hbg A1C 5.7 in 2023
History of osteoarthritis with prior hip and knee replacement
History of hernia repair
Benign Prostatic Hyperplasia
DVT Prophylaxis: SCDs
Code Status: Full
Anticipated Discharge: 24 - 48 hours
Subjective/Interval History
-
Date of Service: May 18, 2025
Patient was seen and examined. He reported having continued blood in his bowel movements, denied any other complaints.
Objective Data
-
Labs:
Laboratory Results
05/18/25 05/18/25 05/18/25
11:37 14:16 20:16
Hgb 13.0 Pending Pending
Hct 38.1 L Pending Pending
Vital Signs:
Vital Signs
Temp Pulse Resp BP Pulse Ox
98 F 72 16 130/78 95
05/18/25 07:10 05/18/25 11:07 05/18/25 11:07 05/18/25 07:02 05/18/25 11:07
[2025-05-18] MEDS: GAVILAX 238 GM PO (17:39)
[2025-05-18 20:26] LABS: Hematocrit 39.7 % (39.0-52.0); Hemoglobin 13.5 g/dL (13.0-18.0)
[2025-05-18] MEDS: GAVILAX 120 GM PO (21:53)
--- NOTE | 2025-05-18 22:08 | PTCARENOTE ---
Caring for pt overnight. Continues to have bloody bm's. Prepping for colonoscopy tomorrow. Remains asymptomatic, hgb stable 13. NPO after midnight. VSS. NO other complaints. Family at beside. Will continue to monitor.
[2025-05-19 00:27] VITALS: BP 126/96
[2025-05-19 01:37] LABS: Hematocrit 37.4 % (39.0-52.0); Hemoglobin 12.5 g/dL (13.0-18.0)
[2025-05-19 02:00] VITALS: BP 141/63
[2025-05-19 04:33] LABS: Hematocrit 34.6 % (39.0-52.0); Hemoglobin 11.7 g/dL (13.0-18.0); Mean Corp Hgb Conc. 33.8 g/dL (33.0-37.0); Mean Corpuscular Volume 92.3 fL (80.0-94.0); Platelet Count 200 10^3/uL (130-400); Red Cell Dist. Width 14.5 % (11.5-14.5)
[2025-05-19 04:43] LABS: INR 1.22; PT 15.9 Sec (11.4-14.6)
[2025-05-19 05:04] LABS: Blood Urea Nitrogen 19 mg/dl (9-20); Calcium 8.2 mg/dl (8.4-10.2); Carbon Dioxide 24 mmol/L (22-30); Chloride 112 mmol/L (98-107); Estimated Creatinine Clearance 104 ml/min; Glucose 99 mg/dl (70-99); Potassium 3.9 mmol/L (3.5-5.1); Sodium 139 mmol/L (135-145); eGFR > 60.00
[2025-05-19 05:33] VITALS: BP 149/73
[2025-05-19 06:00] VITALS: BP 150/66
[2025-05-19] MEDS: NSS IV (06:19)
[2025-05-19] MEDS: PROTONIX IV 40 MG IV (07:15)
[2025-05-19] MEDS: NSS (PRESERVATIVE FREE) 10 ML IV (07:15)
[2025-05-19] MEDS: SYMBICORT 160/4.5 MCG INHALER 2 PUFF INH (07:20)
[2025-05-19] MEDS: SPIRIVA RESPIMAT 2.5 MCG 2 PUFF INH (07:20)
[2025-05-19 08:00] VITALS: BP 169/89
--- NOTE | 2025-05-19 08:36 | PTCARENOTE ---
Patient received from field cane scaler helper RN. Larisa. No discomfort reported this am. + BM this am bloody (dark). Morning meds administer. GI lab called for report.
--- NOTE | 2025-05-19 10:22 | W.PN.UPDATE ---
Update Note
Progress Note Update
colonoscopy:
only fair prep but did get to cecum. several flat polyps (cecum, transverse colon), did not remove
multiple diverticula in left colon, only area where there was old clots.
plan:
no corn
repeat colonoscopy as outpatient with Dr Angeles as there were some flat polyps and may have been some under the debris that were not seen.
stable for d/c from gi standpoint
--- NOTE | 2025-05-19 10:23 | W.PN.HOSP.TC ---
Addendum entered and electronically signed by Axel Epps MD 05/23/25 09:21:
Lower GI Bleeding -- likely from Diverticulosis -- related to/associated with/due to/exacerbated by aspirin
Original Note:
Today's Communication/Plan
-
Discharge today
Assessment / Plan
Assessment / Plan
Physical Exam
General: Not in acute distress
HEENT: Moist mucous membranes
Respiratory: Clear to Auscultation Bilaterally
Cardiac: S1/S2 and Regular Rhythm
GI: Non Tender, Non Distended and Other (Obese, not tender. Positive bowel sounds.)
Musculoskeletal: No Cyanosis and No Edema
Neuro: AAO x 3
Assessment/Plan
80 y/o male with past medical history significant for hypertension and asthma who presented to [facility] ED complaining of rectal bleeding. Patient stated that he was feeling well until 05/17/25 evening around 11:30 PM when his noted blood on his
car seat while he was exiting the vehicle at home. He went inside to the bathroom and proceed to have a large amount of 'bloody diarrhea'. He had two large episodes of this. had a picture of the results which appear to be most consistent
with bright red blood and dark clots - no significant amount of stool noted. Patient was feeling lightheaded and weak at home. He denied any prior history of GI bleeding. He had never had a colonoscopy before. He was taking Aspirin 81mg twice daily
for prior history of TIA in his age of 40s.
Lower GI Bleeding -- likely from Diverticulosis
Multiple polyps in the transverse colon and in the cecum
- GI evaluation for additional recommendations -- colonoscopy performed today, findings are above
- Miralax
- I spoke with Dr. Linh Ly (chair maker) and she said okay to resume patient's Aspirin and do diet as tolerated but avoid corn, nuts, seeds for now
- Repeat colonoscopy as outpatient to remove polyps with Dr. Angeles
Benign Hypertension
- Resume Losartan
- Hold HCTZ, resume it outpatient
Asthma without Acute Exacerbation
- Stable. Continue inhaled medications.
- Albuterol PRN.
History of TIA at age ~42
- Okay to resume Aspirin, as per Dr. Ly (see above), at this time
Vitamin D deficiency
Hypertriglyceridemia
History of cellulitis
Obesity
Abnormal glucose with hbg A1C 5.7 in 2023
History of osteoarthritis with prior hip and knee replacement
History of hernia repair
Benign Prostatic Hyperplasia
DVT Prophylaxis: SCDs
Code Status: Full
More than 30 minutes spent in discharge including
Final examination of the patient
Summarizing hospital stay
Instructions for continuing care to all relevant caregivers
Preparation of discharge records, prescriptions, and referral forms
Total time spent (in minutes): 39
Anticipated Discharge: Today
Subjective/Interval History
-
Date of Service: May 19, 2025
Patient was seen and examined. This morning he reported continued blood in his bowel movements. He denied any other symptoms.
Objective Data
-
Labs:
Laboratory Results
05/19/25 05/19/25
01:11 04:24
WBC 8.5
Hgb 12.5 L 11.7 L
Hct 37.4 L 34.6 L
Plt Count 200
PT 15.9 H
INR 1.22
Sodium 139
Potassium 3.9
Chloride 112 H
Carbon Dioxide 24
BUN 19
Creatinine 0.7
Glucose 99
Calcium 8.2 L
Vital Signs:
Vital Signs
Temp Pulse Resp BP Pulse Ox
97.9 F 71 17 150/66 96
05/19/25 04:01 05/19/25 07:23 05/19/25 07:23 05/19/25 06:00 05/19/25 07:23
--- NOTE | 2025-05-19 13:13 | CM ---
Patient with Dx Lower GI Bleeding.
Met with patient, Lexie and daughter Lizett (cell [phone]);
the patient resides with his in a 1 story house with 1 outside step.
He was independent in ADLs and ambulation without using an assistive device.
The patient still shops and drives.
DME - [employer], [facility], commode
No prior VN or SNF
[facility]
Pharmacy - Located within [facility]
The patient says he feels ready for d/c home today. IMM completed. His will provide transport home.
No CM d/c needs identified.
Plan home today.
--- NOTE | 2025-05-19 14:05 | W.DCSUMMARY ---
Discharge Summary
Discharge Data
Date of Admission: 05/18/25
Date of Discharge: 05/19/25
Total time spent discharging patient (in min): 39
-
Pending Results: No
Hospital Course
80 y/o male with past medical history significant for hypertension and asthma who presented to [facility] emergency room complaining of rectal bleeding. Patient's hemoglobin was initially 14.1, he was given intravenous fluids, his hemoglobin did drop to
11.7. Except for rectal bleeding, he was otherwise asymptomatic and vital signs remained stable. Gastroenterology was consulted, colonoscopy was performed, patient was found to have diverticulosis (determined to be the likely source of bleeding),
multiple polyps, and Dr. yL (airport guide) recommended Miralax to get out debris and clots, and avoid corn, nuts and seeds for now; and repeat colonoscopy as outpatient to remove polyps (Dr. Ly would schedule with Dr Angeles as the prep was
only fair and there were some flat polyps). Temperature Regulator Pyrometer said okay to resume patient's Aspirin. Patient was doing well, he wanted to go home and he was stable for discharge.
Discharge Plan
-
Patient Disposition: Home (Routine Discharge)
Discharge Diagnosis/Procedures: Lower GI Bleeding -- likely from Diverticulosis
Multiple polyps in the transverse colon and in the cecum
Benign Hypertension
Asthma without Acute Exacerbation
History of TIA at age ~42
Vitamin D deficiency
Hypertriglyceridemia
History of cellulitis
Obesity
Abnormal HbA1c 5.7% in 2023
History of osteoarthritis with prior hip and knee replacement
History of hernia repair
Benign Prostatic Hyperplasia
Condition: Good
Diet: As tolerated, Diabetic, Carb Controlled and Other diet
Additional Diets: Avoid corn, nuts or seeds
Activity: As tolerated
Blood Work: Serum CBC, BMP, Albumin and Magnesium with your primary care provider in 3 to 4 days
Activity Restrictions/Additional Instructions:
Avoid corn, nuts or seeds
If you start bleeding in your bowel movements/stools again, or if you have any abdominal pain, dizziness, chest pain, shortness of breath or any other alarm symptom, please call 911 and return to the emergency room right away.
Referrals:
Hema Angeles MD [Active, Gastroenterology] - in two to three weeks
Referral Note: Needs repeat colonoscopy as outpatient to remove polyps
UNKNOWN - PT DOES,NOT KNOW [Family Provider]
Additional Discharge Medication Instructions: You can continue your Aspirin for now, but ask your outpatient physician if you can reduce it to Aspirin 81 mg ONCE a day (rather than twice per day) to reduce your chances of bleeding.
Naproxen has been stopped to reduce the change of gastrointestinal bleeding.
To avoid dropping your blood pressure too much, your hydrochlorothiazide has been placed on hold but Losartan resumed.
Prescriptions:
Continued
losartan 100 mg Tablet
100 mg PO .SEE BELOW
Patient Comments:
05/18/2025, pt. thinks they are taking this med. BID; however, pharmacy records and ecw records from 03/29/2025 have pt. taking once a day.
Breztri Aerosphere 160-9-4.8 mcg/actuation Hfa Aerosol Inhaler
1 inh INHALATION R BID
aspirin 81 mg Tablet,Chewable
81 mg PO BID
docusate sodium [Colace] 100 mg Capsule
200 mg PO DAILY PRN (Reason: constipation)
Unknown Vitamins/Supplements
1 dose PO .SEE BELOW
Patient Comments:
05/18/2025, pt. and spouse are unsure of the vitamins and supplements pt. is currently taking.
Held
hydrochlorothiazide 25 mg Tablet
25 mg PO .SEE BELOW
Hold Instructions: Resume on 05/26/25. Ask your outpatient doctor if and when you should resume this medication.
Patient Comments:
05/18/2025, pt. thinks they are taking this med. BID; however, pharmacy records and ecw records from 04/29/2025 have pt. taking once a day.
Discontinued
naproxen sodium [Aleve] 220 mg Tablet
440 mg PO DAILYPRN PRN (Reason: mild pain)
Discharge Orders:
Discharge Patient (As Directed); Ordered 05/19/25
Ordered By: Axel Epps
Discharge Date and Time
Discharge Date/Time: 05/19/25 16:00
Print Language: HEBREW
--- NOTE | 2025-05-19 14:41 | PN.CDI ---
CDI
- -
CDI:
Physician Documentation Request
Admit Date: 05/18/25 06:32
Dear Doctor Supriya,
Patient present with bright red blood per rectum. Patient takes aspirin as outpatient and this was held on admission.
05/19 PN states 'Lower GI Bleeding -- likely from Diverticulosis'
Please clarify if a relationship exist between these conditions:
Yes, is related to/associated with/due to/exacerbated by aspirin
No, is not related to/associated with/due to/exacerbated by aspirin
Unable to determine
Use of terms such as suspected, likely, concern for, or probable (associated with a specific diagnosis that is being evaluated, monitored, or treated as if it exists) are acceptable and can be coded in the inpatient setting, when documented at the
time of discharge.
Thank you,
Brooke Duarte RN, BSN
CDI Specialist
tiger text
Please use your independent medical judgment in providing your response.
[2025-05-19 15:50] VITALS: BP 160/81
== END 2025-05-19 16:00 | disposition home or self-care (01) | DRG 378 ==
LOC: IMU 06:32
PROVIDERS: Nurse Practitioner Adult Health; Physician Assistant; ADMITTING PHYSICIAN Hospitalist; ATTENDING PHYSICIAN Hospitalist; CONSULT PHYSICIAN Internal Medicine; EMERGENCY PHYSICIAN Student in an Organized Health Care Education/Training Program
PROC: 0DJD8ZZ Inspection of Lower Intestinal Tract, Via Natural or Artificial Opening Endoscopic (ICD-10-PCS; 2025-05-19)
DX: K57.31 Diverticulosis of large intestine without perforation or abscess with bleeding (principal); D68.32 Hemorrhagic disorder due to extrinsic circulating anticoagulants; Z79.82 Long term (current) use of aspirin; Z86.73 Personal history of transient ischemic attack (TIA), and cerebral infarction without residual deficits; I10 Essential (primary) hypertension; I95.9 Hypotension, unspecified; J45.909 Unspecified asthma, uncomplicated; K57.30 Diverticulosis of large intestine without perforation or abscess without bleeding; D12.3 Benign neoplasm of transverse colon; D12.0 Benign neoplasm of cecum; K92.1 Melena; E55.9 Vitamin D deficiency, unspecified; E66.9 Obesity, unspecified; Z68.34 Body mass index [BMI] 34.0-34.9, adult
CPT/HCPCS: 80048; 80053; 83690; 85014; 85018; 85025; 85027; 85610; 86850; 86900; 86901; 93005; 94640; 96374; 99285

== ENCOUNTER 2025-07-28 06:07 | Day surgery (SDC) | payer MEDICARE, OTHER, SELFPAY ==
[2025-07-28 07:15] VITALS: BP 175/101; BMI 20.9
[2025-07-28 07:25] VITALS: BMI 20.9
[2025-07-28 10:15] VITALS: BP 179/95
== END 2025-07-28 11:00 | disposition home or self-care (01) ==
LOC: SDS 06:07
PROVIDERS: ATTENDING PHYSICIAN Internal Medicine Gastroenterology
DX: D12.2 Benign neoplasm of ascending colon (principal); D12.3 Benign neoplasm of transverse colon; D12.5 Benign neoplasm of sigmoid colon; K63.5 Polyp of colon; K57.30 Diverticulosis of large intestine without perforation or abscess without bleeding; K64.0 First degree hemorrhoids
CPT/HCPCS: 45385; 88305

== ENCOUNTER 2025-08-03 06:17 | Inpatient (IN) | payer MEDICARE, OTHER, SELFPAY ==
[2025-08-03] VITALS (8 sets, daily range): BP systolic 116–159; BP diastolic 73–80; BMI 33.9
--- NOTE | 2025-08-03 05:26 | HPS.HSE ---
Family Physician
-
Family Physician:
Chief Complaint
-
Rectal bleeding
History of Present Illness
This is a 80-year-old male with past medical history significant for hypertension, asthma, obesity, BPH, history of TIA on low-dose aspirin will presented emergency department with rectal bleeding.
Patient had a prior history of rectal bleed earlier this year and presented to the hospital. At the time he had stable vital signs and stable hemoglobin after fluid resuscitation. He had a colonoscopy which showed diverticulosis, multiple polyps
noted. He was started on laxatives and appropriate diet. He was to follow-up with outpatient colonoscopy for polyp removal. He he was continued on his aspirin.
Patient had a colonoscopy on July 28. Diverticulosis again noted. He had multiple polyps from 4 mm to 25 mm, a total of 14 that were treated with a cold snare and resected all treated with argon plasma coagulation with placement of clip.
Mucosal resection was also performed. He had the usual 1 week free of baby aspirin prior to the procedure. Started taking aspirin again the day following the procedure. Patient reported that he had 3 days of constipation. Started taking Senokot
and the second day of taking Senokot he started having bloody bowel movement. He has had mostly bloody bowel movements and stents. He states his never had any bowel movement without blood. He has been feeling lightheaded and dizzy. Spouse
reported that he had a fall yesterday without any loss of consciousness. Overnight patient went to use the commode and then notified the spouse that he was having another bloody bowel movement. He felt he felt very weak and was unable to get up.
Spouse noticed that his color was off. When he tried to get up he felt he was a side. At that point she saw a pool of blood behind him. She called EMS who helped him get into a car and brought him to the emergency department.
He has been having several episodes of rectal bleeding tonight and had a syncopal episode.
In the ED initial vital signs showed a blood pressure of 123/80 with a pulse of 82 oxygen saturation of 94% on room air. He was afebrile.
CBC with Hgb 13. InR 1.2. , BMP, coagulation panel and blood types were sent and pending
Medical History
Past Medical History
Past Medical History: Reports Other
Additional Past Medical History:
Hypertension
TIA (42yo)
Obesity
Osteoarthritis
BPH
Asthma
Past Surgical History: Reports Other
Additional Past Surgical History:
Left TKA
Bilateral ANIYAH
Bilateral Inguinal Hernia Repairs
Social History
Tobacco: Non-smoker
Alcohol: Occasional
Drug: None
Personal:
Living: With Family
Family History
Family History: Not pertinent
Allergies / Home Medications
Allergies reflects when Allergies were last updated in [facility].
Home Medications with original date entered in [facility]
Allergy/Medication List:
Allergies
Allergy/AdvReac Type Severity Reaction Status Date / Time
iodine (Iodine) Allergy Hives Verified 08/03/25 04:56
sulfamethoxazole (From Allergy Itching Verified 08/03/25 04:56
Bactrim)
trimethoprim (From Bactrim) Allergy Itching Verified 08/03/25 04:56
Home Medications
budesonide 160 mcg-glycopyr 9 mcg-formot 4.8 mcg/actuation HFA inhaler (Breztri Aerosphere) 1 inh inhalation R BID Lung/Breathing Issues 02/26/24
hydrochlorothiazide 25 mg tablet 25 mg PO DAILY Blood Pressure 02/26/24
Held on 05/19/25. Instructions: Resume on 05/26/25. Ask your outpatient doctor if and when you should resume this medication.
losartan 100 mg tablet 100 mg PO DAILY Blood Pressure 02/26/24
Unknown Vitamins/Supplements 1 dose PO .SEE BELOW Supplement 05/18/25
aspirin 81 mg chewable tablet 81 mg PO BID Blood Clot Prevention/Tx 05/18/25
docusate sodium 100 mg capsule (Colace) 200 mg PO DAILY PRN constipation 05/18/25
Review of Systems
-
Constitutional: Reports No Symptoms
EENT: Reports No Symptoms
Respiratory: Reports No Symptoms
Cardiac: Reports No Symptoms
Abdomen/GI: Reports Bloody Stools
: Reports No Symptoms
Musculoskeletal: Reports No Symptoms
Skin: Reports No Symptoms
Neurological: Reports Dizzy
Endocrine: Reports No Symptoms
Hematologic/Lymphatic: Reports No Symptoms
Psych: Reports No Symptoms
Physical Exam
Vital Signs
Vital Signs
Temp Pulse Resp BP Pulse Ox
97.8 F 82 20 123/79 94
08/03/25 04:53 08/03/25 05:03 08/03/25 05:03 08/03/25 05:03 08/03/25 05:03
Physical Exam
General: No Apparent Distress and Other (No pallor)
HEENT: NormoCephalic, Moist mucous membranes and PERRLA
Respiratory: Clear; No Wheezes, Rales or Rhonchi
Cardiac: S1/S2 and Regular Rhythm; No Murmur
GI: Non Tender, Non Distended and Normal Bowel Sounds
Rectal: Red
Genito-urinary: Deferred by me
Musculoskeletal: No Clubbing, No Cyanosis and No Edema
Neuro: AO x 3 and Nonfocal/grossly intact
Data Reviewed
-
Lab Data: Labs Reviewed by me
Old Records: Reviewed
Impression/Plan
-
IMPRESSION:
80-year-old male with a history of prior GI bleed thought to be diverticular, history of colonic polyps who was recently status post colonoscopy with resection of multiple polyps throughout the colon presents to the emergency department with
multiple episode of bright red blood per rectum and a syncopal episode today.
PLAN:
Acute GI bleed -suspect lower GI bleed given bright red blood and red blood on pads, suspect possibly post polypectomy in the setting of recent numerous and large polyp removal, however cannot rule out diverticular bleed recurrence as he has
continued have diverticulitis. Has perianal hemorrhoids on colonoscopy but presentation not consistent with hemorrhoidal bleeding. HD stable at this time while supine. Hgb 13 similar to baseline.
- admit to telemetry
- NPO with sips of clears
- hold losartan/hctz/aspirin for now
- protonix iv bid (very unlikely upper gi bleed)
- maintenance d5LR at 75ml/hr
- Trend H&H q 6, typed and consented, transfuse for significant hemodynamic instability, drop in Hgb or Hgb < 8
- GI consult
DVT PPX - SCDs
Code status - Full code
[2025-08-03 05:28] LABS: Hematocrit 40.1 % (39.0-52.0); Hemoglobin 13.0 g/dL (13.0-18.0); Mean Corp Hgb Conc. 32.4 g/dL (33.0-37.0); Mean Corpuscular Volume 86.6 fL (80.0-94.0); Nucleated Red Blood Cells % 0 % (-); Platelet Count 297 10^3/uL (130-400); Red Cell Dist. Width 14.4 % (11.5-14.5)
--- NOTE | 2025-08-03 05:35 | ED.GENMED ---
History of Present Illness
General
Chief Complaint: Rectal Bleeding
Source: patient
Time Seen by Provider: 08/03/25 04:59
Nursing documentation reviewed up to this point in time: agreed with
History of Present Illness
History of Present Illness:
This a pleasant 80-year-old male who presents to the emergency department with multiple episodes of rectal bleeding this evening. Patient states that he has had 2 episodes of syncope this evening. He reports that the rectal bleeding has been
present for the last few days. He has been noticing clots. Patient denies fever or chills, denies nausea or vomiting. He is not on any blood thinners. He did not strike his head this evening. Patient had a colonoscopy several days ago. He was
diagnosed again with diverticulosis. He had several polyps that were removed using a cold snare technique. Patient has been on stool softener since the procedure. He started to have bloody stools shortly after. Last evening he had large amounts
of clotting in the toilet.
Past History
Past History
ED Past Medical History: HTN
Social History
Tobacco: Non-smoker
Alcohol: Occasional
Drug: None
Personal:
Living: with family
Review of Systems
Review of Systems
Allergies reviewed?: Yes
All Other Systems: ROS reviewed and negative except as documented in HPI and ROS
Constitutional: Reports no symptoms
EENT: Reports no symptoms
Respiratory: Reports no symptoms
Cardiac: Reports no symptoms
ABD/GI: Reports bloody stools; Denies abdominal pain
: Reports no symptoms
Musculoskeletal: Reports no symptoms
Skin: Reports no symptoms
Neurological: Reports no symptoms
Endocrine: Reports no symptoms
Hematologic/Lymphatic: Reports no symptoms
Psychiatric: Reports no symptoms
Phy Exam
Physical Exam
Physical Exam:
.
Course
Orders/Labs/Results
Orders:
Orders
08/03/25 05:16
Cardiac Monitoring- Treatment ONCE
IV Insert/Care/Rem.- Treatment PRN
O2 Therapy [RESP] Urgent
Titrate/Wean O2 to maintain O2 sat greater than (%): 93
Special Instructions: MAINTAIN CONTINOUS O2 SATS > OR = 93%
Pulse Ox/spot Check [RESP] Urgent
Quantity: 1
Special Instructions: ON ROOM AIR
08/03/25 05:18
Type+Screen Urgent
Complete Blood Count/With Diff Urgent
Comprehensive Metabolic Panel Urgent
PTT Urgent
Prothrombin Time Urgent
08/03/25 05:38
IV Insert/Care/Rem.- Treatment PRN
Pantoprazole 80 mg/100 ml Nss [Protonix] 80 mg in 100 ml IV NOW
Pantoprazole [Protonix IV] 80 mg IV NOW STA
08/03/25 05:59
Admit/Transfer Patient As Directed
Co-Sign Provider:
Level of Care: Inpatient admission
Assign to:: Telemetry
Physician / Group: Lex Castillo
Diagnosis: GI Bleed
Reason for Telemetry: Other
Other Reason for Telemetry: GI Bleed
Date to Stop Telemetry: 08/05/25
Time to Stop Telemetry: 11:00
Reason for Hospitalization: IV medications
IV pro
Expected length of stay greater than two midnights?: Yes
ELOS- Estimated Length of Stay in days: 2
I certify the patient meets the requirements for IP care: Yes
PRN Pain Medication Management As Directed
May give lesser potent ordered pain med per pt: Yes
preference::
Protocol:: Medication orders for pain may be administered in a
manner that supports deferring to patient preference
when the pt is:
- Requesting an ordered lesser potent pain medication.
Least to most potent pain medications are defined
as: acetaminophen < NSAID < tramadol < opioids
(morphine, oxycodone, hydromorphone).
- Requesting a lesser dose of the same medication IF
ORDERED.
- Requesting a less intrusive route of administration
if both routes are prescribed by the provider (PO <
IV).
08/03/25 Breakfast
NPO
Allow oral meds: Yes
Allow clear liquids: Sips of Clears
08/03/25 06:02
Code Status As Directed
Resuscitation Status: Full Code
08/03/25 08:06
Consult Notification Routine
Specialty to Notify: Gastroenterology
Date consulting provider notified: 08/03/25
Time consulting provider notified: :55
Notified:: Provider
Comment: MACO DARBY
GASTROINTESTINAL CONSULT Routine
Consulting Provider: Maco Darby
Was physician already notified: No
Reason for consult: GI Bleed
Activity As Directed
Activity Level: Out of Bed-Early Mobility
Comment: fall precautions
INT (Intravenous Needle Therapy) As Directed
Comment: Place 2 IV catheters of the largest bore possible until stable
Pneumatic Compression Sleeves As Directed
Type: Knee high
Vital Signs As Directed
Frequency: Per unit guidelines
DX Deep Vein Thrombosis Video Routine
08/03/25 08:15
Budesonide/Formoterol 160/4.5 [Symbicort 160/4.5 Mcg Inhaler] 2 puff INH R BID
Dextrose 5%/Lactringers 1000ML [D5lr] 1,000 ml IV 75 mls/hr
08/03/25 11:01
H&H Q6H
08/03/25 17:11
H&H Q6H
08/03/25 20:00
Pantoprazole [Protonix IV] 40 mg IV BID
08/03/25 23:30
H&H Q6H
08/04/25 05:19
Basic Metabolic Panel IN AM
Complete Blood Count/No Diff IN AM
08/05/25 11:00
DC Protocol for Telemetry ONCE
Abnormal Lab Results
08/03/25
05:18
RBC 4.63 L 10^6/uL
(4.70-6.10)
MCHC 32.4 L g/dL
(33.0-37.0)
Abs Immat Gran (auto) 0.1 H 10^3/uL
(0-0.05)
Absolute Neuts (auto) 7.6 H 10^3/uL
(1.4-6.5)
Absolute Monos (auto) 1.3 H 10^3/uL
(0.1-0.6)
Immature Gran % 1.3 H %
(0-0.5)
Lymphocytes % 14.6 L %
(20.5-51.1)
Monocytes % 11.7 H %
(1.7-9.3)
PT 15.8 H Sec
(11.4-14.6)
BUN 29 H mg/dl
(9-20)
Glucose 156 H mg/dl
(70-99)
08/03/25 05:18
08/03/25 05:18
Vital Signs
Initial and Last Documented VS:
Initial Vital Signs
Temp Pulse Resp BP Pulse Ox
97.8 F 88 24 158/80 95
08/03/25 04:53 08/03/25 04:53 08/03/25 04:53 08/03/25 04:53 08/03/25 04:53
Last Documented Vital Signs
Temp Pulse Resp BP Pulse Ox
97.8 F 70 14 156/69 97
08/04/25 07:27 08/04/25 07:28 08/04/25 07:28 08/04/25 07:27 08/04/25 08:00
*Pulse Oximetry
SaO2: 94
Oxygen Mode of Delivery: Room air
Patient hypoxic: no
*Critical Care Note
Total Time (30-74mins, 75-104mins- exclusive of procedures): Not Applicable
Update Note
Update Note:
Patient had blood on a feminine pad, which was Hemoccult positive
ED Attending Note
-
Portions of this chart may have been created with voice recognition software.� Occasional wrong word or��sound alike� substitutions may have occurred due to the inherent limitations of voice recognition software.
Discharge Plan
Departure
Patient Disposition: Admit
Date of Disposition: 08/03/25
Time of Disposition: 05:38
Presentation/result/management discussed w/ accepting MD/DO: Hospitalist
Discharge Problem:
Bright red rectal bleeding
Interventions
Interventions:
*Risk Screen - Suicide Last Done: 08/03/25 04:53
*General Assessment Last Done: 08/03/25 05:09
*Neglect/Abuse Screening Last Done: 08/03/25 04:53
*ED- Fall Risk Assessment Last Done: 08/03/25 05:09
*ED COVID-19 Vaccine History Last Done: 08/03/25 05:09
*Nursing Disposition Last Done: 08/03/25 08:02
CC-Uhkwgx-Jppblbfeyz Assessment Last Done: 08/03/25 05:23
ED- Cardiac Assessment Last Done: 08/03/25 05:23
ED- Neurological Assessment Last Done: 08/03/25 05:23
ED- Pulmonary Assessment Last Done: 08/03/25 05:23
Discharge Date and Time
Discharge Date/Time: 08/03/25 08:03
[2025-08-03 05:39] LABS: APTT 32.8 Sec (23.4-35.0); INR 1.23; PT 15.8 Sec (11.4-14.6)
[2025-08-03] MEDS: PROTONIX 100 IV (05:47)
[2025-08-03] MEDS: PROTONIX IV 80 MG IV (05:47)
[2025-08-03 05:56] LABS: ALT (SGPT) 18 U/L (0-50); AST (SGOT) 23 U/L (17-59); Albumin 3.9 g/dl (3.5-5.0); Alkaline Phosphatase 59 U/L (38-126); Blood Urea Nitrogen 29 mg/dl (9-20); Calcium 9.0 mg/dl (8.4-10.2); Carbon Dioxide 26 mmol/L (22-30); Chloride 101 mmol/L (98-107); Estimated Creatinine Clearance 60 ml/min; Glucose 156 mg/dl (70-99); Potassium 4.1 mmol/L (3.5-5.1); Sodium 136 mmol/L (135-145); Total Protein 6.9 g/dl (6.3-8.2); eGFR > 60.00
[2025-08-03] MEDS: SYMBICORT 160/4.5 MCG INHALER 2 PUFF INH ×2 (08:17→19:24)
[2025-08-03] MEDS: SPIRIVA RESPIMAT 2.5 MCG 2 PUFF INH (08:26)
[2025-08-03] MEDS: D5LR 1000 IV ×2 (08:40→21:55)
--- NOTE | 2025-08-03 09:51 | CON.GI ---
Addendum entered and electronically signed by Maco Darby MD 08/03/25 14:43:
I saw and examined the patient.
The DISC PAD GRINDER or PA's note was reviewed and I agree with the note.
Comment: 80yo male presents with rectal bleeding for last couple days following colonoscopy with removal of multiple polyps throughout the colon 07/28, largest was 25mm in proximal sigmoid piecemeal resected- path adenoma. Other polyps were
adenoma/hyperplastic. He had possible syncopal episode at home. Hgb 13 on admission, f/u 11.4. No further bleeding this afternoon.
REC:
Follow BMs and hgb
likely post polypectomy bleeding that has resolved
Keep on clears for now.
If rebleeds, then set up colonoscopy to treat
Original Note:
Consultation
-
Date/Time Consultation Requested: 08/03/2025
Date/Time Consultation Performed: 08/03/2025
Requesting Provider: Ronnell Pierre
Performing Provider: Maco Darby
Reason for Consultation: GI Bleed
Medical History
Chief Complaint / HPI
Chief Complaint: GI Bleed
History of Present Illness:
Lemuel is an 80-year-old male with past medical history significant for hypertension, asthma, obesity, BPH, history of TIA on aspirin 81mg BID presented emergency department with rectal bleeding.
Patient was seen back in May of 2025 for painless rectal bleeding. He did not require transfusions. Inpatient colonoscopy was done which showed multiple polyps and diverticulosis. He was given Miralax and discharged with GI follow up for repeat
colonoscopy with polyp removal. When seen in July 2025, Dr. Angeles removed roughly 12 polyps, several of which were >1cm and the largest of which was 2.5cm and located at the proximal sigmoid and required hemostasis with argon plasma and
hemostatic clip. He did not receive anesthesia during the colonoscopy. He otherwise tolerated the procedure well and was discharged the next day. He reports constipation from 07/28 to 08/01 without a single bowel movement. He started taking Senokot on
08/01 and on evening of 08/01 - 08/02 (he is not sure which) he had a bowel movement that contained bright red blood. He flushed several times before wiping and without looking, so he does not know whether there was stool in those bowel movements or
just blood. These BMs were painless to pass. He thought the bloody stool was an expected complication so he did not say anything about it when it first happened. He continued with intermittent bloody stools until the morning of presentation on 08/03.
He reports feeling tired, sleeping often, and having decreased appetite/oral intake during this time as well. On 08/03 he felt faint and had a fall while ambulating from the bathroom after a bloody BM. He grabbed the phone to call his who was in
a separate room. When she entered the room she noted he was pale, diaphoretic, and had blood around him/in the toilet. She called 911. Since having bloody BMs, he had not been eating normally and been drinking minimally. He reports no fevers,
chills, nausea, vomiting, coffee ground emesis or hematemesis during this time. He noted no abdominal pain during this time. He does not take any blood thinners, however he does take aspirin 81mg BID. When asked who put him on the BID dosing, he
said he put himself on it. 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
In the ED initial vital signs showed a blood pressure of 123/80 with a pulse of 82, oxygen saturation of 94% on room air. He was afebrile. Hgb on admission was 13.0. There was no leukocytosis. Antihypertensives were held, he was started on IV
protonix ggt BID, kept NPO, given IVF. Had bright red bloody BM on arrival to ED. GI was consulted for the bloody BMs.
When seen this morning he is AOx3, not experiencing any lightheadedness, dizziness, cp, sob, abd pain, n/v/d. He denies any fevers or chills. He feels well, aside from 'ravenous hunger'.
Past Medical History
Past Medical History: Other (See HPI)
Past Surgical History: Other (inguinal hernia repair 1974, 1994, Right THR 2016, L TKA, L THR )
Social History
Tobacco: Non-Smoker
Alcohol: Occasional
Drug: None
Personal:
Living: With Family
Family History
Family History: Reviewed & Not Pertinent
Allergies / Home Medications
Allergy/AdvReac Type Severity Reaction Status Date / Time
iodine (Iodine) Allergy Hives Verified 08/03/25 04:56
sulfamethoxazole (From Allergy Itching Verified 08/03/25 04:56
Bactrim)
trimethoprim (From Bactrim) Allergy Itching Verified 08/03/25 04:56
�Medication �Instructions �Recorded
budesonide 160 mcg-glycopyr 9 1 inh inhalation R BID 02/26/24
mcg-formot 4.8 mcg/actuation HFA Lung/Breathing Issues
inhaler (Breztri Aerosphere)
losartan 100 mg tablet 100 mg PO DAILY Blood Pressure 02/26/24
aspirin 81 mg chewable tablet 81 mg PO BID Blood Clot 05/18/25
Prevention/Tx
hydrochlorothiazide 25 mg tablet 25 mg PO DAILY 08/03/25
sennosides 8.6 mg tablet (senna) 8.6 mg PO BIDPRN PRN constipation 08/03/25
Review of Systems
-
History Source: Patient
All other systems: A 12 pt ROS was Negative except as stated above in HPI
Vital Signs
Temp Pulse Resp BP Pulse Ox
98.2 F 65 18 152/78 95
08/03/25 08:13 08/03/25 08:24 08/03/25 08:24 08/03/25 08:13 08/03/25 09:17
Physical Exam
Exam
General: Well Developed, Well Nourished, No Apparent Distress and Comfortable
HEENT: Normocephalic, Anicteric, Moist Mucous Membranes and Atraumatic
Respiratory: Clear and Non Labored Respirations; Negative Wheezes, Rales or Rhonchi
Cardiac: S1/S2 and Regular Rhythm; Negative Murmur or Rub
Breast: N/A
GI: Soft, Non Tender, Non Distended and Normal Bowel Sounds
Rectal: Deferred by Provider
Musculoskeletal: No Clubbing, No Cyanosis and No Edema
Skin: Warm and Dry
Neuro: AO x 3
Psych: Calm
Results
WBC 10.8 10^3/uL (4.8-10.8) 08/03/25 05:18
Hgb 13.0 g/dL (13.0-18.0) 08/03/25 05:18
Hct 40.1 % (39.0-52.0) 08/03/25 05:18
MCV 86.6 fL (80.0-94.0) 08/03/25 05:18
Plt Count 297 10^3/uL (130-400) 08/03/25 05:18
Absolute Neuts (auto) 7.6 10^3/uL (1.4-6.5) H 08/03/25 05:18
PT 15.8 Sec (11.4-14.6) H 08/03/25 05:18
INR 1.23 08/03/25 05:18
APTT 32.8 Sec (23.4-35.0) 08/03/25 05:18
Sodium 136 mmol/L (135-145) 08/03/25 05:18
Potassium 4.1 mmol/L (3.5-5.1) 08/03/25 05:18
Chloride 101 mmol/L (98-107) 08/03/25 05:18
Carbon Dioxide 26 mmol/L (22-30) 08/03/25 05:18
BUN 29 mg/dl (9-20) H 08/03/25 05:18
Creatinine 1.2 mg/dL (0.7-1.3) 08/03/25 05:18
Calcium 9.0 mg/dl (8.4-10.2) 08/03/25 05:18
Total Bilirubin 1.1 mg/dl (0.2-1.3) 08/03/25 05:18
AST 23 U/L (17-59) 08/03/25 05:18
ALT 18 U/L (0-50) 08/03/25 05:18
Alkaline Phosphatase 59 U/L (38-126) 08/03/25 05:18
Diagnostic Image Results:
None.
Prior GI Procedures:
EGD: None.
Colonoscopy:
Indications:
- Therapeutic procedure for colon polyps
- Therapeutic procedure for known colon adenoma
- This patient was referred for a therapeutic procedure
- Therapeutic procedure
- referred for unsedated colonoscopy in setting of known multiple
polyps which were not resected
Impression:
- Preparation of the colon was fair.
- Hemorrhoids found on perianal exam.
- The examined portion of the ileum was normal.
- Stool in the entire examined colon.
- One 4 mm polyp in the cecum, removed with a cold snare. Resected
and retrieved.
- Six 2 to 12 mm polyps in the ascending colon, removed with a cold
snare. Resected and retrieved.
- Two 7 to 12 mm polyps in the distal transverse colon, removed
with a cold snare. Resected and retrieved.
- One 8 mm polyp in the descending colon, removed with a cold
snare. Resected and retrieved.
- One 25 mm polyp in the proximal sigmoid colon. Resected and
retrieved. Treated with argon plasma coagulation (APC). Clip was
placed.
- Mucosal resection was performed. Resection was complete, and
retrieval was complete.
- Diverticulosis in the sigmoid colon, in the descending colon, in
the transverse colon and in the ascending colon.
- Non-bleeding internal hemorrhoids.
Recommendation:
- Discharge patient to home.
- Patient has a contact number available for emergencies. The
signs and symptoms of potential delayed complications were discussed
with the patient. Return to normal activities tomorrow. Written
discharge instructions were provided to the patient.
- High fiber diet.
- Await pathology results.
- Repeat colonoscopy in 6 months for surveillance by the referring
physician after piecemeal polypectomy.
- Return to referring physician as previously scheduled.
Assessment / Plan
-
Lemuel is an 80-year-old male with past medical history significant for hypertension, asthma, obesity, BPH, history of TIA on BID aspirin presented emergency department with rectal bleeding 6 days after colonoscopy with multiple polyp removals with
Dr. Angeles.
#Rectal Bleeding
#Recent Colonoscopy with removal of multiple large polyps
#Diverticulosis
#Internal Hemorrhoids
Etiology of bleed could be multifactorial including continued postprocedural bleeding vs. diverticular bleed vs. hemorrhoidal bleed vs. bleeding angioectasia vs. other. Patient is 6 days out from colonoscopy on 07/28 with use of argon plasma and
hemostatic clip following removal of 2.5 cm polyp in proximal sigmoid colon. Patient had constipation for several days postprocedure followed by use of laxative with resultant bloody bowel movement, so it is possible that a clot was dislodged
secondary to large bowel movement which resulted in further bleeding. BID aspirin would put him at a higher risk for post-procedural bleed vs. daily dosing. Less likely new diverticular bleed.
Syncopal falls may be a consequence of transient hypoglycemia given decreased PO intake vs. vasovagal syncope vs. hypotension secondary antihypertensives (though less likely given no signs of dehydration on chemistry).
- Continue to monitor bowel movements for signs of active bleeding
- Hemoglobin 13 on admission -- repeat 11.4 -- c/t trend for now
- Transfuse for hemoglobin less than 7, platelets less than 20,000 with platelets less than 50,000 with signs of active bleeding
- Continue with IV fluid resuscitation
- Patient currently n.p.o.
- with hgb stable, if he continues to have no new bloody BMs and there is no need of scope, then he can eat regular diet as tolerated
- Observe for any more bloody BMs into the afternoon. If none, then repeat scope would be of little utility in this setting as bleeding would have likely resolved
- Discussed inappropriateness of BID Aspirin dosing post-TIA
- He will reduce to Aspirin 81mg once daily.
- GI will follow
-
-
Thank you for consultation and allowing me to participate in the patient's care. Please call the automotive parts counter person GI physician during the after hours with any questions or concerns.
[2025-08-03 11:07] LABS: Hematocrit 33.5 % (39.0-52.0); Hemoglobin 11.4 g/dL (13.0-18.0)
--- NOTE | 2025-08-03 14:39 | W.PN.HOSP.TC ---
Today's Communication/Plan
-
see plan
Assessment / Plan
Assessment / Plan
Impression
80-year-old male with a history of prior GI bleed thought to be diverticular, history of colonic polyps who was recently status post colonoscopy with resection of multiple polyps throughout the colon presents to the emergency department with
multiple episode of bright red blood per rectum and a syncopal episode today.
Post polypectomy bleeding.
Acute blood loss anemia
Multiple polyps removed.
Pathology consistent with tubular adenoma
Bleeding seems to be subsided with no hemoglobin plateau at that
Advance to clear liquid diet
Continue monitoring including serial hemoglobin while inpatient
Discussed with GI
Hold aspirin
Essential hypertension.
Holding antihypertensive regimen including HCTZ and losartan
Anticipated Discharge: 24 - 48 hours
Subjective/Interval History
-
Date of Service: August 03, 2025
Objective Data
-
Labs:
Laboratory Results
08/03/25 08/03/25 08/03/25
05:18 11:01 17:00
WBC 10.8
Hgb 13.0 11.4 L Pending
Hct 40.1 33.5 L Pending
Plt Count 297
PT 15.8 H
INR 1.23
APTT 32.8
Sodium 136
Potassium 4.1
Chloride 101
Carbon Dioxide 26
BUN 29 H
Creatinine 1.2
Glucose 156 H
Calcium 9.0
Total Bilirubin 1.1
AST 23
ALT 18
Alkaline Phosphatase 59
08/03/25
23:00
WBC
Hgb Pending
Hct Pending
Plt Count
PT
INR
APTT
Sodium
Potassium
Chloride
Carbon Dioxide
BUN
Creatinine
Glucose
Calcium
Total Bilirubin
AST
ALT
Alkaline Phosphatase
Vital Signs:
Vital Signs
Temp Pulse Resp BP Pulse Ox
98.1 F 76 17 123/78 98
08/03/25 11:07 08/03/25 11:07 08/03/25 11:07 08/03/25 11:07 08/03/25 11:07
Physical Exam
-
General: Well Developed and No Apparent Distress
HEENT: Normocephalic, Atraumatic and Moist Mucous Membranes
Respiratory: Clear to Auscultation
Cardiac: Regular Rhythm and S1/S2; Negative Murmur, Rub or Gallop
GI: Soft, Nontender, Nondistended and Normal Bowel Sounds; Negative Organomegaly
Rectal: Deferred by Provider
Musculoskeletal: No Clubbing, No Cyanosis and No Edema
Skin: Negative Rash
Neuro: Nonfocal/Grossly Intact
[2025-08-03 17:20] LABS: Hematocrit 33.2 % (39.0-52.0); Hemoglobin 11.2 g/dL (13.0-18.0)
[2025-08-03] MEDS: NSS (PRESERVATIVE FREE) 10 ML IV (20:42)
[2025-08-03] MEDS: PROTONIX IV 40 MG IV (20:43)
[2025-08-03 23:46] LABS: Hematocrit 30.9 % (39.0-52.0); Hemoglobin 10.6 g/dL (13.0-18.0)
[2025-08-04 02:46] VITALS: BP 107/71
[2025-08-04 05:43] LABS: Hematocrit 31.2 % (39.0-52.0); Hemoglobin 10.3 g/dL (13.0-18.0); Mean Corp Hgb Conc. 33.0 g/dL (33.0-37.0); Mean Corpuscular Volume 85.5 fL (80.0-94.0); Platelet Count 193 10^3/uL (130-400); Red Cell Dist. Width 14.0 % (11.5-14.5)
[2025-08-04 06:05] LABS: Blood Urea Nitrogen 17 mg/dl (9-20); Calcium 7.7 mg/dl (8.4-10.2); Carbon Dioxide 29 mmol/L (22-30); Chloride 104 mmol/L (98-107); Estimated Creatinine Clearance 80 ml/min; Glucose 112 mg/dl (70-99); Potassium 3.8 mmol/L (3.5-5.1); Sodium 136 mmol/L (135-145); eGFR > 60.00
[2025-08-04] MEDS: SPIRIVA RESPIMAT 2.5 MCG 2 PUFF INH (07:22)
[2025-08-04] MEDS: SYMBICORT 160/4.5 MCG INHALER 2 PUFF INH (07:22)
[2025-08-04 07:27] VITALS: BP 156/69
[2025-08-04] MEDS: PROTONIX IV 40 MG IV (08:15)
[2025-08-04] MEDS: NSS (PRESERVATIVE FREE) 10 ML IV (08:15)
--- NOTE | 2025-08-04 10:43 | W.PN.GI.CBS2 ---
Today's Communication / Plan
-
Bleeding stopped
OK to start low residue diet
Hgb stable
OK to d/c
Will sign off
Assessment / Plan
-
Lemuel is an 80-year-old male with past medical history significant for hypertension, asthma, obesity, BPH, history of TIA on BID aspirin presented emergency department with rectal bleeding 6 days after colonoscopy with multiple polyp removals with
Dr. Angeles.
Impression:
Post polypectomy bleed
#Rectal Bleeding
#Recent Colonoscopy with removal of multiple large polyps
#Diverticulosis
#Internal Hemorrhoids
Subjective
Subjective
Date of Service: August 04, 2025
No further bleeding overnight. Denies complaints
Objective
Data Reviewed
Laboratory Data:
Laboratory Results
08/04/25 05:19
08/04/25 05:19
Laboratory Results
PT 15.8 Sec (11.4-14.6) H 08/03/25 05:18
INR 1.23 08/03/25 05:18
APTT 32.8 Sec (23.4-35.0) 08/03/25 05:18
Total Bilirubin 1.1 mg/dl (0.2-1.3) 08/03/25 05:18
AST 23 U/L (17-59) 08/03/25 05:18
ALT 18 U/L (0-50) 08/03/25 05:18
Alkaline Phosphatase 59 U/L (38-126) 08/03/25 05:18
Vital Signs and I&O:
Vital Signs
Temp Pulse Resp BP Pulse Ox
97.8 F 70 14 156/69 97
08/04/25 07:27 08/04/25 07:28 08/04/25 07:28 08/04/25 07:27 08/04/25 07:27
I&O
08/03/25 08/04/2508/05/25
06:59 06:59 06:59
Intake Total 270 / 270
Balance 270 / 270
Physical Exam
Physical Exam
GI: Soft, Non Distended and Non Tender
[2025-08-04] MEDS: D5LR 1000 IV (11:04)
--- NOTE | 2025-08-04 11:37 | W.DS.TRANS ---
DC Summary - [employer]
-
Discharge Instructions:
Discharge Diagnosis/Procedures Post polypectomy bleeding
Diet Low Residue
Instructions:
Stand-Alone Forms:
Changes to Home Medications: No
Discharge Medications:
DC Medications w/original date entered in [employer]
budesonide 160 mcg-glycopyr 9 mcg-formot 4.8 mcg/actuation HFA inhaler (Breztri Aerosphere) 1 inh inhalation R BID Lung/Breathing Issues 02/26/24
losartan 100 mg tablet 100 mg PO DAILY Blood Pressure 02/26/24
aspirin 81 mg chewable tablet 81 mg PO BID Blood Clot Prevention/Tx 05/18/25
Held on 08/04/25. Instructions: Resume on 08/11/25.
hydrochlorothiazide 25 mg tablet 25 mg PO DAILY Fluid Retention/Swelling 08/03/25
Held on 08/04/25. Instructions: Resume on 08/11/25.
sennosides 8.6 mg tablet (senna) 8.6 mg PO BIDPRN PRN constipation 08/03/25
Home Medication Changes
Pending Results: No
--- NOTE | 2025-08-04 12:06 | CM ---
CM met with patient and Lexie to discuss discharge today. will transport home.
The patient says he feels ready for d/c home today. IMM completed. His will provide transport home.
PCP - Lorena ANDERSON, Located Within [facility]
Pharmacy - [facility]
No CM d/c needs identified.
== END 2025-08-04 14:19 | disposition home or self-care (01) | DRG 920 ==
LOC: 3 WEST ACU 06:17
PROVIDERS: Nurse Practitioner Gerontology; ADMITTING PHYSICIAN Internal Medicine; ATTENDING PHYSICIAN Internal Medicine; CONSULT PHYSICIAN Specialist; EMERGENCY PHYSICIAN Student in an Organized Health Care Education/Training Program; FAMILY PHYSICIAN Nurse Practitioner Family
DX: K91.840 Postprocedural hemorrhage of a digestive system organ or structure following a digestive system procedure (principal); D62 Acute posthemorrhagic anemia; Y83.8 Other surgical procedures as the cause of abnormal reaction of the patient, or of later complication, without mention of misadventure at the time of the procedure; I10 Essential (primary) hypertension; K57.30 Diverticulosis of large intestine without perforation or abscess without bleeding; K64.8 Other hemorrhoids; J45.909 Unspecified asthma, uncomplicated; E66.9 Obesity, unspecified; N40.0 Benign prostatic hyperplasia without lower urinary tract symptoms; K59.00 Constipation, unspecified; M19.90 Unspecified osteoarthritis, unspecified site; Z79.51 Long term (current) use of inhaled steroids; Z68.33 Body mass index [BMI] 33.0-33.9, adult; Z79.82 Long term (current) use of aspirin; Z79.899 Other long term (current) drug therapy; Z86.73 Personal history of transient ischemic attack (TIA), and cerebral infarction without residual deficits; Z86.0100 Personal history of colon polyps, unspecified
CPT/HCPCS: 80048; 80053; 85014; 85018; 85025; 85027; 85610; 85730; 86850; 86900; 86901; 94640; 96374; 96375; 99285

== ENCOUNTER → 2025-09-14 10:55 | Outpatient (REF) | payer MEDICARE, OTHER, SELFPAY | LOC: HWRCS 10:55 | PROVIDERS: ATTENDING PHYSICIAN Nurse Practitioner Family | DX: R01.1 Cardiac murmur, unspecified (principal) | CPT/HCPCS: 93306 ==